=== PATIENT | female | born 1985 | race Caucasian/White ===

== ENCOUNTER → 2017-01-23 | Outpatient (CLI) | payer BC, OTHER ==
[~2017-01-23] MED LIST: PRENTAB26 PO
[2017-01-23 18:26] LABS: BLOOD UREA NITROGEN 10 mg/dl (7-18); BUN/CREATININE RATIO 11.5 (10-20); CALCIUM 9.1 mg/dl (8.5-10.1); CARBON DIOXIDE 28 mmol/L (21-32); CHLORIDE 107 mmol/L (98-107); CREATININE 0.86 mg/dl (0.60-1.20); GLUCOSE 70 mg/dl (70-99); POTASSIUM 3.7 mmol/L (3.5-5.1); SODIUM 140 mmol/L (136-145)
[2017-01-24 06:48] LABS: ESTIMATED AVERAGE GLUCOSE 120 mg/dl; HA1C FLAG Normal (Normal)
== END | disposition home or self-care (01) ==
LOC: C.LABPVFM 13:25
PROVIDERS: ATTEND Family Medicine
DX: E28.2 Polycystic ovarian syndrome (principal)

== ENCOUNTER → 2017-05-18 | Outpatient (CLI) | payer OTHER ==
[2017-05-18 12:56] LABS: CHOLESTEROL/HDL RATIO 4.5
[2017-05-18 13:03] LABS: ESTIMATED AVERAGE GLUCOSE 114 mg/dl; HA1C FLAG Normal (Normal)
== END | disposition home or self-care (01) ==
LOC: C.LABPVFM 08:03
PROVIDERS: ATTEND Nurse Practitioner
DX: E28.2 Polycystic ovarian syndrome (principal); E88.81 Metabolic syndrome and other insulin resistance

== ENCOUNTER 2018-11-28 06:57 | Inpatient (IN) ==
[~2018-11-28 06:57] MED LIST changes: +CEFAZOLIN 2000MG 2,000 MG/15 ML SYR IV SCH; -PRENTAB26 PO
[2018-11-28 07:32] LABS: Eosinophils # (auto) 0.07 K/uL (0-0.5); Hematocrit (blood only) 39.1 % (37-47); Hemoglobin 13.7 g/dL (12.0-16.0); Immature Granulocytes # (auto) 0.01 K/uL (0.00-0.02); Immature Granulocytes % (auto) 0.1 %; Lymphocytes # (auto) 1.96 K/uL (1.2-3.4); Lymphocytes % (auto) 27.1 %; Mean Corpuscular Volume 88.7 fL (80-100); Monocytes # (auto) 0.59 K/uL (0.11-0.59); Monocytes % (auto) 8.2 %; Neutrophils # (auto) 4.59 K/uL (1.4-6.5); Neutrophils % (auto) 63.6 %; Platelet Count 181 K/uL (130-400); RDW Coefficient of Variation 14.4 % (11.5-14.5); Red Blood Count 4.41 M/uL (4.2-5.4); White Blood Count 7.22 K/uL (4.8-10.8)
[2018-11-28] MEDS ORDERED: OXYTOCIN 30 UNITS/500 ML BAG IV PRN ×2 (08:38→08:46)
[2018-11-28] MEDS: LACTATED RINGER'S 1,000 ML IV PRN ×2 (09:02→15:10)
--- NOTE | 2018-11-28 11:53 | History & Physical Report ---
Date of Service November 28, 2018 Assessment & Plan (1) Encounter for planned induction of labor: will begin pitocin induction to bring head into the pelvis then AROM or cervical balloon to facilitate labor pattern anticipate vaginal . Present on Admission?: Yes History of Present Illness Primary Care Provider: Clarice Ramsey MD Patient is a 33 yo white female EDC12/05/18 who presents for IOL because of term . no contractions yet, no bloody show. complicated by prior delivery at 27 weeks gestation. She received [place] thiss pregn bea. Also GDM diet controlled. GBS (-) presentation at office visit yesterday was mauro breech. Today vertex by sonogram. Allergies Allergy/AdvReac Type Severity Reaction Status Date / Time No Known Allergies Allergy Verified 11/28/18 10:39 Home Medications Home Medications Medication Instructions Recorded Confirmed Type vit no.[id number] 1 tab PO DAILY 11/28/18 11/28/18 History [ Vitamin] Patient History Medical History Supervision of high risk in third trimester (Acute) Supervision of high risk in second trimester (Acute) Sensation of pressure in bladder area (Acute) -induced diabetes (Acute) Polycystic ovarian syndrome (Acute) Obesity complicating peripregnancy, antepartum (Acute) History of premature delivery, currently (Acute) Gross hematuria (Acute) Encounter for anatomic survey (Acute) Diet controlled gestational diabetes mellitus (GDM) in third trimester (Acute) Hx LEEP (loop electrosurgical excision procedure), cervix, [place] teeth extracted Social History Preferred Language: Slovak Beliefs That Will Affect Care: None marital status: Current Living Situation: Spouse and Family Other Information That Helps Us Care for You: No Feels Safe at Home: Yes Safety Concerns: Feels Safe At This Time Smoking Status: Former smoker Tobacco Type: cigarettes Do You Dip or Chew Tobacco: No Smoking End Date: two years ago Second Hand Exposure: No Hx Alcohol Use: No Hx Substance Use: No Review of Systems All systems reviewed & are unremarkable except as noted in HPI & below Physical Exam Constitutional: WD/WN, vitals as above Respiratory: normal respiratory effort, lungs clear to auscultation Cardiovascular: RRR, no murmur, no edema Gastrointestinal (Abdomen): normal bowel sounds, soft, nontender, no hepatosplenomegaly Genitourinary: OB Exam Abdomen: + vertex and + estimated weight (6-7 pounds) Manual OB Exam: + cervical dilation (closed), + cervical effacement 50% and + station high OB Exam Monitor Tracing: + external FHT monitor used, + external uterine monitor used and + normal FHT variability vertex by sonogram Results & Data Vital Signs (Past 12 Hours) Vital Signs Temp Pulse Resp BP 11/28/18 11:14 79 143/91 H 11/28/18 11:10 36.5 C 11/28/18 11:08 16 11/28/18 10:06 78 141/79 H 11/28/18 10:00 16 11/28/18 09:11 77 134/83 11/28/18 07:26 81 128/81 11/28/18 07:20 36.4 C L 81 18 128/81
[2018-11-28] MEDS ORDERED: fentaNYL citrate 100 MCG/2 ML VIAL ONE ×2 (15:04→16:34)
[2018-11-28] MEDS ORDERED: BUPIVACAINE 0.25% 30 ML VIAL ONE (15:04)
[2018-11-28] MEDS ORDERED: ePHEDrine sulfate 50 MG/ML AMP ONE (15:04)
[2018-11-28] MEDS ORDERED: fentaNYL 2MCG/ML ROPIV 1.25MG/ML 100 ML BAG EPI ONE (15:05)
--- NOTE | 2018-11-28 15:14 | Anesthesiology Consultation ---
Date of Service November 28, 2018 Assessment & Plan Chart Review Chart Review: Patient NOT seen in Pre Admission Testing and Acceptable Risk for Labor Epidural Consults Requested none ASA ASA2 Proposed Anesthesia Anesthesia Type: Labor Epidural and CSE Risk / Benefits Reviewed With: PT / POA / Parent / Guardian, Accepts Plan and Informed Consent Obtained History Surgery Operation Date: 11/28/18 09:00 Proposed Procedures p Section in LD - Shayy Lyles MD, FACOG Height/Weight Height: 5 ft 1 in Weight: 98.43 kg Allergies Allergy/AdvReac Type Severity Reaction Status Date / Time No Known Allergies Allergy Verified 11/28/18 10:39 Medications Home Medications Medication Instructions Recorded Confirmed Last Taken vit no.[id number] 1 tab PO DAILY 11/28/18 11/28/18 11/27/18 [ Vitamin] Active Medications Generic Name Dose Route Start Last Admin Trade Name Freq PRN Reason Stop Dose Admin Lactated Ringer's 1,000 mls @ 125 mls/hr 11/28/18 08:38 11/28/18 15:10 Lr IV 11/30/18 08:37 999 mls/hr .Q8H PRN Administration L&D Protocol Protocol Oxytocin 30 units in 500 mls @ 17 mls/hr 11/28/18 08:46 11/28/18 14:29 Pitocin IV 11/30/18 08:45 1.02 units/hr .Q24H PRN 17 mls/hr Labor Induction/Augmentation Titration Protocol 1.02 UNITS/HR NPO Date Last Intake of Fluids: 11/28/18 Time Last Intake of Fluids: 15:00 Date Last Intake of Solids: 11/27/18 Time Last Intake of Solids: 19:30 Past Medical History Medical History Supervision of high risk in third trimester (Acute) Supervision of high risk in second trimester (Acute) Sensation of pressure in bladder area (Acute) -induced diabetes (Acute) Polycystic ovarian syndrome (Acute) Obesity complicating peripregnancy, antepartum (Acute) History of premature delivery, currently (Acute) Gross hematuria (Acute) Encounter for anatomic survey (Acute) Diet controlled gestational diabetes mellitus (GDM) in third trimester (Acute) Hx LEEP (loop electrosurgical excision procedure), cervix, [place] teeth extracted Exercise / Class Metabolic Activity II 4-5 Yardwork/Stairs/Walk up hill Past Anesthesia History No Hx of Anesthesia Complications and No Family Hx of Anesthesia Complications History of PONV No Hx of PONV and No Hx of Motion Sickness Social History Smoking Status: Former smoker tobacco type: cigarettes Do You Dip or Chew Tobacco: No Smoking End Date: two years ago Hx Alcohol Use: No Hx Substance Use: No substance use type: does not use Review of Systems no chest pain or sob Physical Exam Vital Signs Last Vital Signs Temp 36.6 C 11/28/18 15:00 Pulse 76 11/28/18 15:09 Resp 22 11/28/18 15:00 BP 140/82 11/28/18 14:54 Pulse Ox 98 11/28/18 15:09 ENMT Mouth: no TMJ abnormality Thyromental Distance: > or= 3.5 Finger Breadths Mallampati Class: II Neck normal visual inspection Respiratory normal respiratory effort Auscultation: lungs clear to auscultation bilaterally Cardiovascular Rate/Rhythm: regular rate and regular rhythm Musculoskeletal Spine: normal cervical ROM Neurologic moves all extremities Psychiatric Orientation: alert and oriented x 3 Testing Laboratory Results 11/28/18 07:25 Blood Type O Positive 11/28/18 07:22 Antibody Screen NEGATIVE 11/28/18 07:22
[2018-11-28] MEDS ORDERED: ONDANSETRON INJ 2 MG/ML 2 ML VIAL IV PRN ×3 (15:26→17:38)
[2018-11-28] MEDS ORDERED: NALBUPHINE HCL INJ 10 MG/ML AMP IV PRN ×2 (15:26→17:11)
[2018-11-28] MEDS ORDERED: DiphenhydrAMINE HCL 50 MG/ML VIAL IV PRN ×3 (15:26→17:38)
[2018-11-28] MEDS ORDERED: fentaNYL 2MCG/ML ROPIV 1.25MG/ML 100 ML BAG EPI PRN (15:26)
[2018-11-28] MEDS ORDERED: NALOXONE HCL 0.4 MG/1 ML VIAL/CARP IV PRN ×2 (15:26→17:11)
[2018-11-28] MEDS ORDERED: NALOXONE HCL 1 MG in SODIUM CHLORIDE 0.9% 1000ML 1,000 ML IV PRN ×2 (15:26→17:11)
[2018-11-28] MEDS ORDERED: ePHEDrine sulfate 50 MG/ML AMP IV PRN ×2 (15:26→17:11)
[2018-11-28] MEDS ORDERED: CITRIC ACID/SODIUM CITRATE 15 ML UDC PO SCH (16:00)
[2018-11-28] MEDS ORDERED: LACTATED RINGER'S 1,000 ML IV SCH ×3 (16:30→17:45)
[2018-11-28] MEDS ORDERED: LIDOCAINE/EPINEPHRINE 2% 1:200,000 20 ML SDV ONE ×2 (16:35→17:00)
[2018-11-28] MEDS ORDERED: CITRIC ACID/SODIUM CITRATE 15 ML UDC ONE (16:39)
[2018-11-28] MEDS ORDERED: CEFAZOLIN 250 MG/ML 1 GM VIAL ONE (16:52)
[2018-11-28] MEDS ORDERED: OXYTOCIN 10 UNITS/ML VIAL ONE (16:52)
[2018-11-28] MEDS ORDERED: MoRPHine SULFATE PF 1 MG/ML 10 ML AMP/VIAL ONE (16:53)
[2018-11-28] MEDS ORDERED: LACTATED RINGER'S 500 ML IV PRN (17:11)
[2018-11-28] MEDS ORDERED: KETOROLAC 30 MG/ML VIAL IV PRN (17:11)
[2018-11-28] MEDS ORDERED: HYDROmorphone INJ 0.5 MG/0.5 ML SYR IV PRN (17:11)
[2018-11-28] MEDS ORDERED: NALOXONE HCL 0.08 MG in SYRINGE 1.8 ML IV PRN (17:11)
[2018-11-28] MEDS ORDERED: MoRPHine SULFATE PF 1 MG/ML 10 ML AMP/VIAL INT SPINAL ONE (17:11)
[2018-11-28] MEDS ORDERED: SODIUM CHLORIDE 0.9% 1000ML 1,000 ML IV SCH (17:15)
[2018-11-28] MEDS ORDERED: PHENYLEPHRINE 100MCG/ML 5ML SYR ONE (17:15)
[2018-11-28] MEDS ORDERED: ONDANSETRON INJ 2 MG/ML 2 ML VIAL ONE (17:15)
[2018-11-28] MEDS ORDERED: NO NARCOTICS OR SEDATIVES SCH (17:15)
[2018-11-28] MEDS ORDERED: SENNA 8.6 MG TAB PO PRN (17:38)
[2018-11-28] MEDS ORDERED: DIPHTHERIA/TETANUS/PERTUSSIS 0.5 ML SYR/VIAL IM ONE (17:38)
[2018-11-28] MEDS ORDERED: SUPERCREAM 0.870% 15 GM JAR EXT PRN (17:38)
[2018-11-28] MEDS ORDERED: PROMETHAZINE HCL 25 MG in SODIUM CHLORIDE 0.9% 50 ML IV PRN (17:38)
[2018-11-28] MEDS ORDERED: HYDROCORTISONE ACETATE 25 MG SUPP PR PRN (17:38)
[2018-11-28] MEDS ORDERED: MAGNESIUM HYDROXIDE SUSP 30 ML UDC PO PRN (17:38)
[2018-11-28] MEDS ORDERED: BENZOCAINE 20% AER SPR 82.5 GM CAN EXT PRN (17:38)
--- NOTE | 2018-11-28 17:45 | Post Operative Brief Note ---
Immediate Post Op Note v1 Date of Surgery November 28, 2018 Pre & Post Diagnosis Operation Date: 11/28/18 09:00 <No data on this case meets the specified criteria> Operation Date: 11/28/18 16:30 Pre-Op Diagnosis: Intrauterine compound presentation-hand presentation Post-Op Diagnosis: primary low transverse section for viable male at 1707 Procedure Operation Date: 11/28/18 09:00 <No data on this case meets the specified criteria> Operation Date: 11/28/18 16:30 Actual Procedures p Section in LD - Shayy Lyles MD, FACOG Surgeon Shayy Lyles MD, FACOG Program Counselor Justin Su MD Estimated Blood Loss 500 Findings Consistent with Post-Op Diagnosis Drains Maldonado Catheter (inserted in labor and delivery)
--- NOTE | 2018-11-28 18:17 | Anesthesiology Progress Note ---
Date of Service November 28, 2018 Anesthesia Post Procedure Vital Signs Vital Signs: Temp Pulse Resp BP Pulse Ox 11/28/18 18:11 72 97 11/28/18 18:10 75 102/58 L 87 L 11/28/18 18:06 75 97 11/28/18 18:01 74 96 11/28/18 17:56 72 115/56 L 96 11/28/18 17:53 76 91 11/28/18 17:52 75 117/56 L 11/28/18 17:51 74 95 11/28/18 16:34 87 98 11/28/18 16:30 22 11/28/18 16:29 83 139/82 98 11/28/18 16:24 78 97 11/28/18 16:19 76 97 11/28/18 16:14 82 98 11/28/18 16:13 81 126/68 11/28/18 16:09 81 96 11/28/18 16:04 80 98 11/28/18 16:00 20 11/28/18 15:59 80 96 11/28/18 15:57 83 143/79 H 11/28/18 15:54 88 96 11/28/18 15:49 86 97 11/28/18 15:44 81 97 11/28/18 15:41 82 147/88 H 11/28/18 15:39 81 145/85 H 97 11/28/18 15:37 76 145/88 H 11/28/18 15:35 82 142/82 H 11/28/18 15:34 81 98 11/28/18 15:33 80 145/82 H 11/28/18 15:31 77 145/80 H 11/28/18 15:30 20 11/28/18 15:29 82 137/78 97 11/28/18 15:27 75 150/85 H 11/28/18 15:25 78 153/86 H 11/28/18 15:24 81 98 11/28/18 15:23 83 139/80 11/28/18 15:19 79 99 11/28/18 15:17 80 143/83 H 11/28/18 15:14 76 99 11/28/18 15:09 76 98 11/28/18 15:00 36.6 C 20 11/28/18 14:54 72 140/82 11/28/18 14:20 69 140/81 06/27/19 14:00 16 11/28/18 12:32 81 139/80 11/28/18 11:14 79 143/91 H 11/28/18 11:10 36.5 C 11/28/18 11:08 16 11/28/18 10:06 78 141/79 H 11/28/18 10:00 16 11/28/18 09:11 77 134/83 11/28/18 07:26 81 128/81 11/28/18 07:20 36.4 C L 81 18 128/81 Pain Intensity Lower Abdomen: Pain Intensity: 2 Transfer of Care Handoff Completed per policy Notes Mental Status: alert / awake / arousable Patient Amnestic to Procedure: Yes Nausea / Vomiting: adequately controlled Pain: adequately controlled Airway Patency, RR, SpO2: stable & adequate BP & HR: stable & adequate Hydration State: stable & adequate Neuraxial Anesthesia: was administered and sensory block is resolving Anesthetic Complications: no major complications apparent and Pt Satisfied with anesthetic care
[2018-11-28] MEDS: OXYTOCIN 20 UNITS in LACTATED RINGER'S 1,000 ML IV PRN (21:28)
[2018-11-28] MEDS: DOCUSATE SODIUM 100 MG CAP PO SCH (21:34)
[2018-11-28] MEDS: SIMETHICONE 80 MG CHEW PO SCH (21:34)
--- NOTE | 2018-11-29 01:15 | Operative Report ---
DATE OF OPERATION: 11/28/2018 SURGEON: Shayy Blas MD DAMAGE APPRAISER: Justin Su MD PREOPERATIVE DIAGNOSIS: Intrauterine at 39 weeks, induction of labor, and compound presentation with hand presenting. POSTOPERATIVE DIAGNOSIS: Intrauterine at 39 weeks, induction of labor, and compound presentation with hand presenting plus delivery of a viable male infant, 8 pounds 8 ounces. PROCEDURE: Primary low transverse section. ANESTHESIA: Epidural. BLOOD LOSS: 500 mL. HISTORY: The patient is a 33-year-old white female G2, P0-1-0-1, EDC of 12/05/2018, who presented for induction of labor. She had had no contractions yet and in the office yesterday it was breech presentation. On admission to labor and delivery on the morning of 11/28/2018, the infant was in a vertex presentation, but floating. Pitocin was begun. She progressed to 4 cm and 100% dilated; however, the presenting part was still high, but still continued to be vertex. She received epidural analgesia. She then ruptured membranes spontaneously for a large amount of clear fluid. The exam following the rupture revealed what appeared to be an ear presentation. Following this, the patient was examined one half an hour later and there was a presenting hand, which felt like the right hand. Because of the now hand presentation, we proceeded to a low transverse section. The patient and her were agreeable to this plan and her questions were answered to their satisfaction. GROSS FINDINGS: Uterus was gravid and consistent with a term in size. The ovaries were grossly normal. There was a small sessile fibroid on the right fundus. The infant was in the vertex right transverse position with the right hand presenting to the level of the wrist. DESCRIPTION OF PROCEDURE: After the patient received adequate epidural analgesia, she was prepped and draped in the usual sterile fashion. A low transverse skin incision was made with a scalpel and carried to the fascia with the same scalpel. The fascial incision was then extended with Bautista scissors. The edges were grasped with Gisel clamps and the underlying rectus muscles were bluntly and sharply dissected off the overlying fascia. The rectus muscles were bluntly divided along the midline and the underlying peritoneum elevated and entered sharply. The bladder was then taken down off the anterior surface of the uterus and placed behind the bladder blade. The lower uterine segment was quite thin and this was entered with a scalpel and extended transversely. The infant was delivered from the vertex and bringing the right elbow and hand up with the vertex to deliver both at the same time. The rest of the delivered easily. There was spontaneous cry and the infant was moving all 4 limbs. The cord was clamped and cut after suctioning the pharynx and handed off to Dr. Rodriguez, who was in attendance as the administrator social welfare. The placenta was then expressed intact with a 3-vessel cord. The uterus was exteriorized and covered with a clean lap sponge. The uterine cavity was then explored and found to be free of any placental tissue or membranes. The uterus was then closed in 2 layers in a running locking imbricating fashion. Bleeding site on the left side of the incision was controlled with an additional stitch of 0 Monocryl. Hemostasis at this point was excellent. The posterior cul-de-sac was irrigated with normal saline. The uterus was gently placed back inside the abdominal cavity. The uterine incision continued to have excellent hemostasis. The gutters were explored. A few clots were taken from the right gutter and the anterior cul-de-sac was also irrigated with normal saline. The rectus muscles were then brought together on the midline with individual stitches of 0 Monocryl. Fascia was closed in a running fashion with 0 Vicryl. The Carey's fascia was closed with 2-0 plain catgut in a running fashion after irrigating the adipose layer. Skin edges were reapproximated using a subcuticular stitch of 4-0 Vicryl. Urine was clear at the end of the case. Mother and were doing well after the procedure. I attest to the content of the Intraoperative Record and any orders documented therein. Any exceptions are noted below. GUID
[2018-11-29] MEDS: OXYTOCIN 20 UNITS in LACTATED RINGER'S 1,000 ML IV PRN (04:45)
[2018-11-29 07:16] LABS: Eosinophils # (auto) 0.02 K/uL (0-0.5); Eosinophils % (auto) 0.2 %; Hematocrit (blood only) 34.8 % (37-47); Immature Granulocytes # (auto) 0.01 K/uL (0.00-0.02); Immature Granulocytes % (auto) 0.1 %; Lymphocytes # (auto) 1.63 K/uL (1.2-3.4); Mean Corpuscular Hgb Conc 34.5 g/dL (32-36); Mean Corpuscular Volume 88.8 fL (80-100); Monocytes # (auto) 0.91 K/uL (0.11-0.59); Monocytes % (auto) 8.9 %; Neutrophils % (auto) 74.8 %; Platelet Count 157 K/uL (130-400); RDW Coefficient of Variation 14.2 % (11.5-14.5); RDW Standard Deviation 46.2 fL (36.4-46.3); Red Blood Count 3.92 M/uL (4.2-5.4); White Blood Count 10.17 K/uL (4.8-10.8)
--- NOTE | 2018-11-29 07:17 | Obstetrical Progress Note ---
Date of Service <Rivera Gilliam, - Last Filed: 11/29/18 07:17> November 29, 2018 Assessment & Plan <Rivera Gilliam DO - Last Filed: 11/29/18 07:17> (1) Status post section routine follow-up: -vital signs reviewed and WNL -last Hgb 13.7 -Blood type: O+, GBS-, Rubella Immune -pt doing well clinically -encourage ambulation, monitor and control pain with motrin tylenol, advance to regular diet, monitor lochia -remove cook -cont encourage bottle feeding Subjective <Rivera Gilliam DO - Last Filed: 11/29/18 07:17> 33 y/o POD1 found in bed this morning in NAD. Reports no acute overnight events. Pt states that she has no pain other than appropriate soreness. Tolerating PO intake of liquids without N/V. Has not attempted to ambulate. She is bottle feeding without issue. No issues with voiding, no BM yet but passing gas, cook in place. No other acute concerns or complaints. Review of Systems All systems reviewed & are unremarkable except as noted in HPI & below Physical Exam <Rivera Gilliam, - Last Filed: 11/29/18 07:17> Constitutional WD/WN, vitals as above Respiratory normal respiratory effort, lungs clear to auscultation Cardiovascular RRR, no murmur, no edema Gastrointestinal (Abdomen) mild abd tenderness Incision C/D/I, no bandage Skin no rashes, warm and dry Psychiatric A+Ox3, euthymic affect Lymphatic no LE swelling, no calf tenderness Results & Data <Rivera Gilliam, - Last Filed: 11/29/18 07:17> Vital Signs (Past 12 Hours) Vital Signs Temp Pulse Pulse Resp BP BP Pulse Ox 11/29/18 06:15 20 99 11/29/18 05:14 18 100 11/29/18 04:00 36.8 C 83 18 136/84 99 11/29/18 03:00 18 99 11/29/18 02:00 18 98 11/29/18 01:00 18 99 11/29/18 00:00 36.7 C 80 18 134/79 99 11/28/18 22:45 18 97 11/28/18 21:45 16 92 11/28/18 20:45 36.6 C 85 16 140/75 92 11/28/18 20:31 85 140/75 11/28/18 20:26 90 96 11/28/18 20:21 84 95 11/28/18 20:16 79 97 11/28/18 20:11 84 97 11/28/18 20:06 80 97 11/28/18 20:01 85 135/78 98 11/28/18 20:00 36.5 C 20 11/28/18 19:56 73 95 11/28/18 19:51 87 97 11/28/18 19:46 74 97 11/28/18 19:41 82 97 11/28/18 19:36 76 98 11/28/18 19:32 69 122/73 11/28/18 19:31 70 99 11/28/18 19:26 73 97 11/28/18 19:21 74 99 11/28/18 19:16 75 98 Laboratory Results Laboratory Results - last 24 hr 11/28/18 11/28/18 11/29/18 07:22 07:25 06:31 WBC 7.22 Pending RBC 4.41 Pending Hgb 13.7 Pending Hct 39.1 Pending MCV 88.7 Pending MCH 31.1 Pending MCHC 35.0 Pending RDW Std Deviation 47.0 H RDW Coeff of Annette 14.4 Plt Count 181 Pending MPV 10.0 Immature Gran % (Auto) 0.1 Neut % (Auto) 63.6 Lymph % (Auto) 27.1 [place] % (Auto) 8.2 Eos % (Auto) 1.0 Baso % (Auto) 0.0 Immature Gran # (Auto) 0.01 Neut # (Auto) 4.59 Lymph # (Auto) 1.96 [place] # (Auto) 0.59 Eos # (Auto) 0.07 Baso # (Auto) 0.00 Blood Type O Positive Antibody Screen NEGATIVE Medications Administered Current Inpatient Medications Benzocaine (Dermoplast Pain Relieving [place]) 1 appln EXT UD PRN PRN Reason: use on skin as needed Stop: 12/28/18 17:37 Bisacodyl (Dulcolax) 5 mg PO 1999 [facility] Stop: 11/29/18 20:01 Bisacodyl (Dulcolax) 10 mg [place] PRN PRN PRN Reason: Constipation Stop: 12/30/18 17:37 Cocaine HCl (Supercream 0.870%) 1 gm EXT UD PRN PRN Reason: hemmorrhoidal inflammation Stop: 12/12/18 17:37 Diphenhydramine HCl (Benadryl) 25 mg IV Q6H PRN PRN Reason: Itching Stop: 11/29/18 15:25 Diphenhydramine HCl (Benadryl) 25 mg IV Q6H PRN PRN Reason: pruritis Stop: 11/29/18 11:11 Diphenhydramine HCl (Benadryl Capsule) 25 mg PO QID PRN PRN Reason: Itching Stop: 12/29/18 11:11 Diphenhydramine HCl (Benadryl) 25 mg IV QID PRN PRN Reason: Itching Stop: 12/29/18 11:11 Docusate Sodium (Colace) 100 mg PO DAILY@08, [facility] Stop: 12/28/18 20:59 Last Admin: 11/28/18 21:34 Dose: 100 mg Documented by: Ephedrine Sulfate (Ephedrine Sulfate) 10 mg IV Q5M PRN PRN Reason: Hypotension Stop: 11/29/18 15:25 Ephedrine Sulfate (Ephedrine Sulfate) 10 mg IV Q5M PRN PRN Reason: Hypotension Stop: 11/29/18 11:11 Ferrous Sulfate (Feosol) 325 mg PO DAILY@08 [facility] Stop: 12/29/18 07:59 Hydrocortisone (Anusol Hc) 25 mg [place] BID PRN PRN Reason: Hemorrhoids Stop: 12/28/18 17:37 Hydromorphone HCl (Dilaudid) 0.25 mg IV Q4H PRN PRN Reason: Breakthrough Surgical Pain Stop: 11/29/18 11:12 Oxytocin (Pitocin) 30 units in 500 mls @ 333.333 mls/hr IV .Q1H30M PRN; Protocol PRN Reason: Bleeding Control Stop: 12/28/18 08:37 Oxytocin (Pitocin) 30 units in 500 mls @ 17 mls/hr IV .Q24H PRN; Protocol PRN Reason: Labor Induction/Augmentation Stop: 11/30/18 08:45 Last Titration: 11/28/18 16:26 Dose: Infused Documented by: Naloxone HCl 1 mg/ Sodium (Chloride) 1,002.5 mls @ 50 mls/hr IV .Q20H3M PRN PRN Reason: itching or nausea Stop: 11/29/18 15:25 Lactated Ringer's (Lr) 1,000 mls @ 125 mls/hr IV .Q8H [place] Stop: 12/28/18 17:29 Lactated Ringer's (Lr) 500 mls @ 999 mls/hr IV .Q31M PRN PRN Reason: Hypotension Stop: 11/29/18 11:11 Naloxone HCl 1 mg/ Sodium (Chloride) 1,002.5 mls @ 50 mls/hr IV .Q20H3M PRN PRN Reason: itching or nausea Stop: 11/29/18 11:11 Sodium Chloride (Nss 1000ml) 1,000 mls @ 15 mls/hr IV .Q24H [place] Stop: 11/29/18 11:11 Naloxone HCl 0.08 mg/ Syringe 2 mls @ 1 mls/min IV Q30M PRN; Protocol PRN Reason: Urinary Retention Stop: 11/29/18 11:11 Lactated Ringer's (Lr) 1,000 mls @ 125 mls/hr IV .Q8H [place] Stop: 12/28/18 17:44 Promethazine HCl 25 mg/ Sodium (Chloride) 51 mls @ 204 mls/hr IV Q4H PRN PRN Reason: Nausea And Vomiting Stop: 12/28/18 17:37 Oxytocin 20 units/ Lactated (Ringer's) 1,002 mls @ 125 mls/hr IV .Q8H1M PRN; Protocol PRN Reason: L&D protocol Last Admin: 11/29/18 04:45 Dose: 125 mls/hr Documented by: Ibuprofen (Motrin) 600 mg PO Q4H PRN PRN Reason: Pain Stop: 12/28/18 17:37 Ketorolac Tromethamine (Toradol) 30 mg IV Q6H PRN PRN Reason: Breakthrough Surgical Pain Stop: 11/29/18 11:11 Last Admin: 11/28/18 21:15 Dose: 30 mg Documented by: Ketorolac Tromethamine (Toradol) 30 mg IV Q6H PRN PRN Reason: Pain Stop: 12/04/18 11:11 Magnesium Hydroxide (Milk Of Magnesia) 30 ml PO HS PRN PRN Reason: Constipation Stop: 12/28/18 17:37 Miscellaneous (No Narcotics Or Sedatives) 1 ea N/A UD [place] Stop: 11/29/18 11:11 Miscellaneous Information (Dc Intraspinal Morphine) 1 ea N/A UD [place] Stop: 11/29/18 11:12 Nalbuphine HCl (Nubain) 5 mg IV Q10M PRN PRN Reason: itching or nausea Stop: 11/29/18 15:25 Nalbuphine HCl (Nubain) 5 mg IV Q10M PRN PRN Reason: itching or nausea Stop: 11/29/18 11:11 Naloxone HCl (Narcan) 0.1 mg IV UD PRN PRN Reason: respiratory depression Stop: 11/29/18 15:25 Naloxone HCl (Narcan) 0.1 mg IV UD PRN PRN Reason: Respiratory Depression Stop: 11/29/18 11:11 Ondansetron HCl (Zofran) 4 mg IV Q6H PRN PRN Reason: Nausea And Vomiting Stop: 11/29/18 15:25 Ondansetron HCl (Zofran) 4 mg IV Q6H PRN PRN Reason: Nausea And Vomiting Stop: 11/29/18 11:12 Ondansetron HCl (Zofran) 4 mg IV Q4H PRN PRN Reason: Nausea And Vomiting Stop: 12/28/18 17:37 Oxycodone/Acetaminophen (Percocet 5mg/325mg) 1 - 2 tab PO Q4H PRN PRN Reason: Pain Stop: 12/13/18 11:11 Prenat Multivit/Housekeeping/Laundry Supervisor/Iron/Folic Ac ( Vitamin) 1 tab PO DAILY@08 [facility] Stop: 12/29/18 07:59 Ropivacaine (Epidural (L&D)) 100 ml EPI PRN PRN; Protocol PRN Reason: Pain R/T Labor Stop: 11/29/18 15:25 Sennosides (Senokot) 17.2 mg PO HS PRN PRN Reason: Constipation Stop: 12/28/18 17:37 Simethicone (Mylicon) 80 mg PO DAILY@08,13,17,21 [facility] Stop: 12/28/18 20:59 Last Admin: 11/28/18 21:34 Dose: 80 mg Documented by: <Shayy Lyles MD, FACOG - Last Filed: 11/29/18 07:50> Co-Signing Physician Notes Resident Physician Supervision Note: I interviewed and examined the patient. Discussed with Dr. Lasha Gilliam and agree with findings and plan as documented in the note. Any exceptions or clarificat ions are listed here: [None] Documented By: Shayy Lyles MD, FACOG Resident Activity Tracking <Rivera Gilliam DO - Last Filed: 11/29/18 07:17> Resident Involvement: Resident Care Provided Care Provided: OB Delivery
--- NOTE | 2018-11-29 07:51 | Anesthesiology Progress Note ---
Date of Service November 29, 2018 Anesthesia Post Procedure Vital Signs Vital Signs: Temp Pulse Pulse Resp BP BP Pulse Ox 11/29/18 06:15 20 99 11/29/18 05:14 18 100 11/29/18 04:00 36.8 C 83 18 136/84 99 11/29/18 03:00 18 99 11/29/18 02:00 18 98 11/29/18 01:00 18 99 11/29/18 00:00 36.7 C 80 18 134/79 99 11/28/18 22:45 18 97 11/28/18 21:45 16 92 11/28/18 20:45 36.6 C 85 16 140/75 92 11/28/18 20:31 85 140/75 11/28/18 20:26 90 96 11/28/18 20:21 84 95 11/28/18 20:16 79 97 11/28/18 20:11 84 97 11/28/18 20:06 80 97 11/28/18 20:01 85 135/78 98 11/28/18 20:00 36.5 C 20 11/28/18 19:56 73 95 11/28/18 19:51 87 97 11/28/18 19:46 74 97 11/28/18 19:41 82 97 11/28/18 19:36 76 98 11/28/18 19:32 69 122/73 11/28/18 19:31 70 99 11/28/18 19:26 73 97 11/28/18 19:21 74 99 11/28/18 19:16 75 98 11/28/18 19:11 74 98 11/28/18 19:06 75 98 11/28/18 19:01 75 98 11/28/18 19:00 36.5 C 20 11/28/18 18:59 80 96/54 L 11/28/18 18:56 78 99 11/28/18 18:53 75 104/56 L 11/28/18 18:51 78 99 11/28/18 18:50 20 11/28/18 18:46 78 99 11/28/18 18:42 78 90/50 L 11/28/18 18:41 78 99 11/28/18 18:40 20 11/28/18 18:36 80 99 11/28/18 18:31 80 98 11/28/18 18:30 20 11/28/18 18:26 78 99 11/28/18 18:21 75 99/63 L 98 11/28/18 18:20 18 11/28/18 18:19 81 85 L 11/28/18 18:16 75 99 11/28/18 18:11 72 97 11/28/18 18:10 75 18 102/58 L 87 L 11/28/18 18:06 75 97 11/28/18 18:01 74 96 11/28/18 18:00 36.5 C 16 11/28/18 17:56 72 115/56 L 96 11/28/18 17:53 76 91 11/28/18 17:52 75 117/56 L 11/28/18 17:51 74 95 11/28/18 16:34 87 98 11/28/18 16:30 22 11/28/18 16:29 83 139/82 98 11/28/18 16:24 78 97 11/28/18 16:19 76 97 11/28/18 16:14 82 98 11/28/18 16:13 81 126/68 11/28/18 16:09 81 96 11/28/18 16:04 80 98 11/28/18 16:00 20 11/28/18 15:59 80 96 11/28/18 15:57 83 143/79 H 11/28/18 15:54 88 96 11/28/18 15:49 86 97 11/28/18 15:44 81 97 11/28/18 15:41 82 147/88 H 11/28/18 15:39 81 145/85 H 97 11/28/18 15:37 76 145/88 H 11/28/18 15:35 82 142/82 H 11/28/18 15:34 81 98 11/28/18 15:33 80 145/82 H 11/28/18 15:31 77 145/80 H 11/28/18 15:30 20 11/28/18 15:29 82 137/78 97 11/28/18 15:27 75 150/85 H 11/28/18 15:25 78 153/86 H 11/28/18 15:24 81 98 11/28/18 15:23 83 139/80 11/28/18 15:19 79 99 11/28/18 15:17 80 143/83 H 11/28/18 15:14 76 99 11/28/18 15:09 76 98 11/28/18 15:00 36.6 C 20 11/28/18 14:54 72 140/82 11/28/18 14:20 69 140/81 11/28/18 14:00 16 11/28/18 12:32 81 139/80 11/28/18 11:14 79 143/91 H 11/28/18 11:10 36.5 C 11/28/18 11:08 16 11/28/18 10:06 78 141/79 H 11/28/18 10:00 16 11/28/18 09:11 77 134/83 Pain Intensity Lower Abdomen: Pain Intensity: 2 Transfer of Care Handoff Completed per policy Notes Mental Status: alert / awake / arousable and participated in evaluation Nausea / Vomiting: adequately controlled Pain: adequately controlled Airway Patency, RR, SpO2: stable & adequate BP & HR: stable & adequate Hydration State: stable & adequate Neuraxial Anesthesia: was administered and sensory block resolved Anesthetic Complications: no major complications apparent and Pt Satisfied with anesthetic care Notes: Patient denies headache this morning. Denies feelings of weakness or residual numbness. Patient encouraged to contact anesthesia for any concerns or new headache
[2018-11-29] MEDS: SIMETHICONE 80 MG CHEW PO SCH ×4 (08:07→21:14)
[2018-11-29] MEDS: FERROUS SULFATE 325 MG TAB PO SCH (08:07)
[2018-11-29] MEDS: DOCUSATE SODIUM 100 MG CAP PO SCH ×2 (08:07→19:17)
[2018-11-29] MEDS: PRENATAL VITAMIN 1 TAB PO SCH (08:07)
--- NOTE | 2018-11-29 10:52 | Anesthesiology Progress Note ---
Date of Service November 29, 2018 Anesthesia Post Procedure Vital Signs Vital Signs: Temp Pulse Pulse Resp BP BP Pulse Ox 11/29/18 10:00 16 97 11/29/18 09:00 16 97 11/29/18 08:00 18 96 11/29/18 07:00 16 97 11/29/18 06:15 20 99 11/29/18 05:14 18 100 11/29/18 04:00 36.8 C 83 18 136/84 99 11/29/18 03:00 18 99 11/29/18 02:00 18 98 11/29/18 01:00 18 99 11/29/18 00:00 36.7 C 80 18 134/79 99 11/28/18 22:45 18 97 11/28/18 21:45 16 92 11/28/18 20:45 36.6 C 85 16 140/75 92 11/28/18 20:31 85 140/75 11/28/18 20:26 90 96 11/28/18 20:21 84 95 11/28/18 20:16 79 97 11/28/18 20:11 84 97 11/28/18 20:06 80 97 11/28/18 20:01 85 135/78 98 11/28/18 20:00 36.5 C 20 11/28/18 19:56 73 95 11/28/18 19:51 87 97 11/28/18 19:46 74 97 11/28/18 19:41 82 97 11/28/18 19:36 76 98 11/28/18 19:32 69 122/73 11/28/18 19:31 70 99 11/28/18 19:26 73 97 11/28/18 19:21 74 99 11/28/18 19:16 75 98 11/28/18 19:11 74 98 11/28/18 19:06 75 98 11/28/18 19:01 75 98 11/28/18 19:00 36.5 C 20 11/28/18 18:59 80 96/54 L 11/28/18 18:56 78 99 11/28/18 18:53 75 104/56 L 11/28/18 18:51 78 99 11/28/18 18:50 20 11/28/18 18:46 78 99 11/28/18 18:42 78 90/50 L 11/28/18 18:41 78 99 06/27/19 18:40 20 11/28/18 18:36 80 99 11/28/18 18:31 80 98 11/28/18 18:30 20 11/28/18 18:26 78 99 11/28/18 18:21 75 99/63 L 98 11/28/18 18:20 18 11/28/18 18:19 81 85 L 11/28/18 18:16 75 99 11/28/18 18:11 72 97 11/28/18 18:10 75 18 102/58 L 87 L 11/28/18 18:06 75 97 11/28/18 18:01 74 96 11/28/18 18:00 36.5 C 16 11/28/18 17:56 72 115/56 L 96 11/28/18 17:53 76 91 11/28/18 17:52 75 117/56 L 11/28/18 17:51 74 95 11/28/18 16:34 87 98 11/28/18 16:30 22 11/28/18 16:29 83 139/82 98 11/28/18 16:24 78 97 11/28/18 16:19 76 97 11/28/18 16:14 82 98 11/28/18 16:13 81 126/68 11/28/18 16:09 81 96 11/28/18 16:04 80 98 11/28/18 16:00 20 11/28/18 15:59 80 96 11/28/18 15:57 83 143/79 H 11/28/18 15:54 88 96 11/28/18 15:49 86 97 11/28/18 15:44 81 97 11/28/18 15:41 82 147/88 H 11/28/18 15:39 81 145/85 H 97 11/28/18 15:37 76 145/88 H 11/28/18 15:35 82 142/82 H 11/28/18 15:34 81 98 11/28/18 15:33 80 145/82 H 11/28/18 15:31 77 145/80 H 11/28/18 15:30 20 11/28/18 15:29 82 137/78 97 11/28/18 15:27 75 150/85 H 11/28/18 15:25 78 153/86 H 11/28/18 15:24 81 98 11/28/18 15:23 83 139/80 11/28/18 15:19 79 99 11/28/18 15:17 80 143/83 H 11/28/18 15:14 76 99 11/28/18 15:09 76 98 11/28/18 15:00 36.6 C 20 11/28/18 14:54 72 140/82 11/28/18 14:20 69 140/81 11/28/18 14:00 16 11/28/18 12:32 81 139/80 11/28/18 11:14 79 143/91 H 11/28/18 11:10 36.5 C 11/28/18 11:08 16 Pain Intensity Lower Abdomen: Pain Intensity: 2 Notes Mental Status: alert / awake / arousable and participated in evaluation Patient Amnestic to Procedure: Yes Nausea / Vomiting: adequately controlled Pain: adequately controlled Airway Patency, RR, SpO2: stable & adequate BP & HR: stable & adequate Hydration State: stable & adequate Anesthetic Complications: no major complications apparent and Pt Satisfied with anesthetic care
[2018-11-29] MEDS ORDERED: DC INTRASPINAL MORPHINE SCH (11:11)
[2018-11-29] MEDS ORDERED: KETOROLAC 30 MG/ML VIAL IV PRN (11:12)
[2018-11-29] MEDS ORDERED: DiphenhydrAMINE HCL 50 MG/ML VIAL IV PRN (11:12)
[2018-11-29] MEDS ORDERED: OXYCODONE/ACETAMINOPHEN 5mg/325mg TAB PO PRN (11:12)
[2018-11-29] MEDS: IBUPROFEN 600 MG TAB PO PRN ×2 (12:08→21:15)
[2018-11-29] MEDS ORDERED: BISACODYL 5 MG TABEC PO SCH (20:00)
--- NOTE | 2018-11-30 07:43 | Obstetrical Progress Note ---
Date of Service <Rivera DimitriLucita Gilliam, DO - Last Filed: 11/30/18 07:43> November 30, 2018 Assessment & Plan <Rivera Gilliam - Last Filed: 11/30/18 07:43> (1) Status post section routine follow-up: -vital signs reviewed and WNL -last Hgb 13.7 -Blood type: O+, GBS-, Rubella Immune -pt doing well clinically -encourage ambulation, monitor and control pain with motrin tylenol, advance to regular diet, monitor lochia -cont encourage bottle feeding -anticipate d/c tomorrow Subjective <Rivera DimitriLucita Gilliam DO - Last Filed: 11/30/18 07:43> 33 y/o POD2 found in bed this morning in NAD. Reports no acute overnight events. Pt states that she has no pain other than appropriate soreness. Tolerating PO intake without N/V. Able to ambulate without issue. She is bottle feeding without issue. No issues with voiding, no BM yet but passing gas, cook removed. No other acute concerns or complaints. Review of Systems All systems reviewed & are unremarkable except as noted in HPI & below Physical Exam <Rivera Gilliam, - Last Filed: 11/30/18 07:43> Constitutional WD/WN, vitals as above Respiratory normal respiratory effort, lungs clear to auscultation Cardiovascular RRR, no murmur, no edema Gastrointestinal (Abdomen) mild abd tenderness Incision C/D/I Skin no rashes, warm and dry Psychiatric A+Ox3, euthymic affect Lymphatic no LE swelling, no calf tenderness Results & Data <Rivera Gilliam, DO - Last Filed: 11/30/18 07:43> Vital Signs (Past 12 Hours) Vital Signs Temp Pulse Resp BP Pulse Ox 11/29/18 23:20 36.9 C 90 16 115/70 97 Medications Administered Current Inpatient Medications Benzocaine (Dermoplast Pain Relieving [place]) 1 appln EXT UD PRN PRN Reason: use on skin as needed Stop: 12/28/18 17:37 Bisacodyl (Dulcolax) 10 mg NH PRN PRN PRN Reason: Constipation Stop: 12/30/18 17:37 Cocaine HCl (Supercream 0.870%) 1 gm EXT UD PRN PRN Reason: hemmorrhoidal inflammation Stop: 12/12/18 17:37 Diphenhydramine HCl (Benadryl Capsule) 25 mg PO QID PRN PRN Reason: Itching Stop: 12/29/18 11:11 Diphenhydramine HCl (Benadryl) 25 mg IV QID PRN PRN Reason: Itching Stop: 12/29/18 11:11 Docusate Sodium (Colace) 100 mg PO DAILY@08,21 [facility] Stop: 12/28/18 20:59 Last Admin: 11/29/18 19:17 Dose: 100 mg Documented by: Ferrous Sulfate (Feosol) 325 mg PO DAILY@08 [facility] Stop: 12/29/18 07:59 Last Admin: 11/29/18 08:07 Dose: 325 mg Documented by: Hydrocortisone (Anusol Hc) 25 mg NH BID PRN PRN Reason: Hemorrhoids Stop: 12/28/18 17:37 Oxytocin (Pitocin) 30 units in 500 mls @ 333.333 mls/hr IV .Q1H30M PRN; Protocol PRN Reason: Bleeding Control Stop: 12/28/18 08:37 Oxytocin (Pitocin) 30 units in 500 mls @ 17 mls/hr IV .Q24H PRN; Protocol PRN Reason: Labor Induction/Augmentation Stop: 11/30/18 08:45 Last Titration: 11/28/18 16:26 Dose: Infused Documented by: Lactated Ringer's (Lr) 1,000 mls @ 125 mls/hr IV .Q8H [facility] Stop: 12/28/18 17:29 Lactated Ringer's (Lr) 1,000 mls @ 125 mls/hr IV .Q8H [facility] Stop: 12/28/18 17:44 Promethazine HCl 25 mg/ Sodium (Chloride) 51 mls @ 204 mls/hr IV Q4H PRN PRN Reason: Nausea And Vomiting Stop: 12/28/18 17:37 Oxytocin 20 units/ Lactated (Ringer's) 1,002 mls @ 125 mls/hr IV .Q8H1M PRN; Protocol PRN Reason: L&D protocol Last Admin: 11/29/18 04:45 Dose: 125 mls/hr Documented by: Ibuprofen (Motrin) 600 mg PO Q4H PRN PRN Reason: Pain Stop: 12/28/18 17:37 Last Admin: 11/29/18 21:15 Dose: 600 mg Documented by: Ketorolac Tromethamine (Toradol) 30 mg IV Q6H PRN PRN Reason: Pain Stop: 12/04/18 11:11 Magnesium Hydroxide (Milk Of Magnesia) 30 ml PO HS PRN PRN Reason: Constipation Stop: 12/28/18 17:37 Ondansetron HCl (Zofran) 4 mg IV Q4H PRN PRN Reason: Nausea And Vomiting Stop: 12/28/18 17:37 Oxycodone/Acetaminophen (Percocet 5mg/325mg) 1 - 2 tab PO Q4H PRN PRN Reason: Pain Stop: 12/13/18 11:11 Prenat Multivit/Heavy [employer] Equipment [employer]r/Iron/Folic Ac ( Vitamin) 1 tab PO DAILY@08 [facility] Stop: 12/29/18 07:59 Last Admin: 11/29/18 08:07 Dose: 1 tab Documented by: Sennosides (Senokot) 17.2 mg PO HS PRN PRN Reason: Constipation Stop: 12/28/18 17:37 Simethicone (Mylicon) 80 mg PO DAILY@08,13,17,21 [facility] Stop: 12/28/18 20:59 Last Admin: 11/29/18 21:14 Dose: 80 mg Documented by: <Justin Su MD - Last Filed: 11/30/18 08:06> Co-Signing Physician Notes Patient seen and evaluated and agree with the above findings and plan. Patient requesting discharge and is stable for discharge today Resident Activity Tracking <Rivera Gilliam DO - Last Filed: 11/30/18 07:43> Resident Involvement: Resident Care Provided Care Provided: OB Delivery
[2018-11-30] MEDS: IBUPROFEN 600 MG TAB PO PRN (07:50)
[2018-11-30] MEDS: SIMETHICONE 80 MG CHEW PO SCH (07:50)
[2018-11-30] MEDS: FERROUS SULFATE 325 MG TAB PO SCH (07:50)
[2018-11-30] MEDS: PRENATAL VITAMIN 1 TAB PO SCH (07:50)
[2018-11-30] MEDS: DOCUSATE SODIUM 100 MG CAP PO SCH (07:50)
[2018-11-30 08:02] LABS: Hematocrit (blood only) 34.6 % (37-47); Hemoglobin 11.9 g/dL (12.0-16.0)
[2018-11-30] MEDS ORDERED: BISACODYL 10 MG SUPP PR PRN (17:38)
--- NOTE | 2018-12-02 11:28 | Discharge Summary ---
PRINCIPAL DIAGNOSES: Intrauterine at 39 weeks for induction of labor, vertex, compound presentation with hand presenting. PRINCIPAL PROCEDURE: Primary low transverse section with delivery of a viable male infant, 8 pounds 8 ounces HISTORY: The patient is a 33-year-old 2, para 0-1-0-1 white female, EDC of 12/05/2018 who presented for induction of labor. She had had no contractions and prior to the admission and in the office prior to her induction the baby was in a breech presentation. On admission to labor and delivery on the morning of 11/28/2018 was in a vertex presentation, but floating. Pitocin was begun. She progressed to 4 cm dilated, 100% effaced, presenting part was still high, but continued to be vertex by ultrasound. She received epidural analgesia. She then ruptured membranes spontaneous for copious amount of clear fluid. Initially there appeared to be an ear presentation, but the cervix exam one half hour later revealed a hand presentation which could not be reduced. She was taken for a section because of the compound presentation. This was done without complications. Mother and were doing well after delivery. Jojo had an uncomplicated postop course. She remained afebrile throughout her hospital stay, was eating regular diet on her 1st postop day. She was ambulating, voiding without difficulty. Oral pain meds were controlling her pain. She was sent home in good condition. Hemoglobin on admission was 13.7, hematocrit 39.1. First postop day hemoglobin 12.0, hematocrit 34.8. Second postop day hemoglobin 11.9, hematocrit 34.6. She was sent home with usual postoperative and instructions. She is to call for temperature of 101 degrees or higher, heavy vaginal bleeding, burning with urination, increased redness, drainage or pain from her incision, calf tenderness or any other concerns. She is to be seen in the office in 6 weeks for a appointment. She was sent home with prescriptions for Motrin 600 mg p.o. q. 6 hours p.r.n. pain and Percocet 1-2 tablets p.o. q. 6 hours p.r.n. pain.
== END 2018-11-30 12:50 | disposition home or self-care (01) | DRG 788 ==
LOC: 4S1 06:57 → 4S2 20:35

== ENCOUNTER 2022-05-21 15:37 | Inpatient (IN) ==
[2022-05-21] MEDS ORDERED: KETOROLAC TROMETHAMINE 15 MG/ML VIAL ONE (16:13)
[2022-05-21 16:25] LABS: Hematocrit (blood only) 38.5 % (34.1-44.9); Hemoglobin 12.7 g/dl (12.0-16.0); Mean Corpuscular Hemoglobin 26.7 pg (25.0-34.0); Mean Corpuscular Volume 80.9 fL (80.0-100.0); Platelet Count 370 K/uL (130-400); RDW Coefficient of Variation 13.5 % (11.5-14.5); RDW Standard Deviation 39.7 fL (36.4-46.3); Red Blood Count 4.76 M/uL (3.93-5.22); White Blood Count 25.87 K/ul (4.8-10.8)
[2022-05-21] MEDS ORDERED: SODIUM CHLORIDE 0.9% 1000ML 1,000 ML IV SCH (16:30)
[2022-05-21 16:43] LABS: Basophils # (auto) 0.03 K/uL (0-0.2); Basophils % (auto) 0.1 %; Immature Granulocytes # (auto) 0.25 K/uL (0.00-0.02); Lymphocytes # (auto) 1.14 K/uL (1.2-3.4); Lymphocytes % (auto) 4.4 %; Monocytes # (auto) 0.49 K/uL (0.24-0.82); Monocytes % (auto) 1.9 %; Neutrophils # (auto) 23.96 K/uL (1.4-6.5); Neutrophils % (auto) 92.6 %
[2022-05-21 16:44] LABS: Albumin Globulin Ratio 1.2 (0.9-2); Albumin Level 4.2 gm/dl (3.4-5.0); BUN Creatinine Ratio 16.4 (10-20); Calcium 8.9 mg/dl (8.5-10.1); Creatinine Clr Calc Pharmacy 92.7 ml/min; Est GFR (African American) 121.1 ml/min; Est GFR (Non-African American) 104.5 ml/min; Globulin 3.4 gm/dl (2.5-4.0); Potassium 3.7 mmol/L (3.5-5.1); Total Protein 7.6 gm/dl (6.0-8.3)
[2022-05-21] MEDS ORDERED: MoRPHine SULFATE 4 MG/ML 1 ML CARP\\VIAL IV STA (16:56)
[2022-05-21] MEDS ORDERED: SODIUM CHLORIDE 0.9% 1000ML 1,000 ML IV ONE (16:56)
[2022-05-21] MEDS ORDERED: ONDANSETRON INJ 2 MG/ML 2 ML VIAL IV STA (16:56)
--- NOTE | 2022-05-21 17:08 | Emergency Department Note ---
History of Present Illness General Chief complaint: Abdominal Pain Stated complaint: SEVERE ABDOMINAL PAIN, HARD TO CATCH BREATHE Time Seen by Provider: 05/21/22 16:41 History of Present Illness Maximum Pain Intensity: 9 37-year-old female who presents to the emergency department with complaint of severe abdominal pain, lower bilateral chest pain and difficulty catching her breath. The patient reports that her symptoms started Adolfo, and progressively worsened throughout the weekend. The patient reports that the pain is worsened with deep breathing. She has a history of gastric bypass 9 months ago at [facility]. She has not had any other postoperative complicati ons. She denies any pain radiating into the back or lower abdomen, and rates her discomfort an 8 out of 10. She does report mild nausea without vomiting. Home Medications Medication Instructions Recorded Confirmed Type No Known Home Medications 05/21/22 05/21/22 History Allergies Allergy/AdvReac Type Severity Reaction Status Date / Time No Known Allergies Allergy Verified 05/21/22 16:33 Past Med/Surg History Medical History Diet controlled gestational diabetes mellitus (GDM) in third trimester Encounter for anatomic survey Gross hematuria History of premature delivery, currently Hx LEEP (loop electrosurgical excision procedure), cervix, Migraine headache Obesity Obesity complicating peripregnancy, antepartum Polycystic ovarian syndrome -induced diabetes Sensation of pressure in bladder area Supervision of high risk in second trimester Supervision of high risk in third trimester Urinary symptom or sign Surgical History S/P LEEP (loop electrosurgical excision procedure) S/P wisdom tooth extraction [place] teeth extracted Family History Mother Depression Grandmother (Paternal) Diabetes Grandfather (Maternal) Diabetes Grandmother (Maternal) Diabetes Grandfather (Paternal) Hypertension Other Breast cancer Denies family history of Ovarian cancer Prostate cancer Colorectal cancer Social History Smoking Status: Never smoker Second Hand Exposure: No; Hx Alcohol Use: No Hx Substance Use: No Preferred Language: Czech Beliefs That Will Affect Care: None marital status: Current Living Situation: Spouse and Family Feels Safe at Home: Yes Assistive Devices: None Review of Systems 10 system review was performed and was negative except for pertinent positives and negatives as indicated in history of present illness Physical Exam Vital Signs Vital Signs - 24 hr 05/21/22 15:41 05/21/22 16:18 05/21/22 16:40 Temperature 37.0 C Temperature Source Temporal Artery Scan Pulse Rate 121 H Pulse Rate [Apical] 115 H Pulse Rate from SpO2 Sensor Pulse Rhythm [Apical] Regular Pulse Strength [Apical] Normal Respiratory Rate 18 20 Respiratory Effort / Characteristics Non-Labored Spontaneous Non-Labored Spontaneous Respiratory Depth Normal Normal Respiratory Pattern Regular Regular Blood Pressure 144/81 H Blood Pressure [Right Arm] 122/74 Blood Pressure Mean 102 Blood Pressure Mean [Right Arm] 90 Blood Pressure Position Sitting Pulse Oximetry 97 97 Oxygen Delivery Method Room Air Room Air Room Air Sepsis Recent Fever Within 48 Hours No Sepsis New/Unexplained Change in Mental Status N/A Sepsis Action Taken by Nursing No Action Required 05/21/22 16:44 05/21/22 16:50 05/21/22 17:00 Temperature Temperature Source Pulse Rate 115 H 116 H Pulse Rate [Apical] Pulse Rate from SpO2 Sensor 115 H 114 H Pulse Rhythm [Apical] Pulse Strength [Apical] Respiratory Rate 21 24 Respiratory Effort / Characteristics Respiratory Depth Respiratory Pattern Blood Pressure 115/64 Blood Pressure [Right Arm] Blood Pressure Mean 81 Blood Pressure Mean [Right Arm] Blood Pressure Position Pulse Oximetry 97 98 Oxygen Delivery Method Sepsis Recent Fever Within 48 Hours Sepsis New/Unexplained Change in Mental Status Sepsis Action Taken by Nursing 05/21/22 17:00 05/21/22 17:10 05/21/22 18:00 Temperature Temperature Source Pulse Rate 111 H 113 H Pulse Rate [Apical] 110 H Pulse Rate from SpO2 Sensor 112 H 114 H Pulse Rhythm [Apical] Pulse Strength [Apical] Respiratory Rate 20 22 29 H Respiratory Effort / Characteristics Non-Labored Spontaneous Respiratory Depth Normal Respiratory Pattern Blood Pressure Blood Pressure [Right Arm] 104/67 Blood Pressure Mean Blood Pressure Mean [Right Arm] 79 Blood Pressure Position Pulse Oximetry 96 97 96 Oxygen Delivery Method Room Air Sepsis Recent Fever Within 48 Hours Sepsis New/Unexplained Change in Mental Status Sepsis Action Taken by Nursing 05/21/22 17:20 05/21/22 17:30 05/21/22 17:30 Temperature Temperature Source Pulse Rate 109 H 112 H Pulse Rate [Apical] Pulse Rate from SpO2 Sensor 109 H 114 H Pulse Rhythm [Apical] Pulse Strength [Apical] Respiratory Rate 21 22 Respiratory Effort / Characteristics Respiratory Depth Respiratory Pattern Blood Pressure 110/70 Blood Pressure [Right Arm] Blood Pressure Mean 83 Blood Pressure Mean [Right Arm] Blood Pressure Position Pulse Oximetry 96 96 Oxygen Delivery Method Sepsis Recent Fever Within 48 Hours Sepsis New/Unexplained Change in Mental Status Sepsis Action Taken by Nursing 05/21/22 17:40 05/21/22 17:50 05/21/22 18:00 Temperature Temperature Source Pulse Rate 110 H 112 H Pulse Rate [Apical] Pulse Rate from SpO2 Sensor 110 H 110 H Pulse Rhythm [Apical] Pulse Strength [Apical] Respiratory Rate 24 22 Respiratory Effort / Characteristics Respiratory Depth Respiratory Pattern Blood Pressure 104/67 Blood Pressure [Right Arm] Blood Pressure Mean 79 Blood Pressure Mean [Right Arm] Blood Pressure Position Pulse Oximetry 97 96 Oxygen Delivery Method Sepsis Recent Fever Within 48 Hours Sepsis New/Unexplained Change in Mental Status Sepsis Action Taken by Nursing 05/21/22 18:00 05/21/22 18:10 05/21/22 18:20 Temperature Temperature Source Pulse Rate 110 H 112 H 106 H Pulse Rate [Apical] Pulse Rate from SpO2 Sensor 108 H 106 H 109 H Pulse Rhythm [Apical] Pulse Strength [Apical] Respiratory Rate 22 25 H 22 Respiratory Effort / Characteristics Respiratory Depth Respiratory Pattern Blood Pressure Blood Pressure [Right Arm] Blood Pressure Mean Blood Pressure Mean [Right Arm] Blood Pressure Position Pulse Oximetry 95 95 96 Oxygen Delivery Method Sepsis Recent Fever Within 48 Hours Sepsis New/Unexplained Change in Mental Status Sepsis Action Taken by Nursing 05/21/22 18:30 05/21/22 18:30 05/21/22 18:40 Temperature Temperature Source Pulse Rate 110 H 108 H Pulse Rate [Apical] Pulse Rate from SpO2 Sensor 110 H 110 H Pulse Rhythm [Apical] Pulse Strength [Apical] Respiratory Rate 22 21 Respiratory Effort / Characteristics Respiratory Depth Respiratory Pattern Blood Pressure 98/62 L Blood Pressure [Right Arm] Blood Pressure Mean 74 Blood Pressure Mean [Right Arm] Blood Pressure Position Pulse Oximetry 94 97 Oxygen Delivery Method Sepsis Recent Fever Within 48 Hours Sepsis New/Unexplained Change in Mental Status Sepsis Action Taken by Nursing 05/21/22 18:50 05/21/22 19:00 05/21/22 19:00 Temperature Temperature Source Pulse Rate 112 H 110 H Pulse Rate [Apical] Pulse Rate from SpO2 Sensor 114 H 111 H Pulse Rhythm [Apical] Pulse Strength [Apical] Respiratory Rate 24 23 Respiratory Effort / Characteristics Respiratory Depth Respiratory Pattern Blood Pressure 107/56 L Blood Pressure [Right Arm] Blood Pressure Mean 73 Blood Pressure Mean [Right Arm] Blood Pressure Position Pulse Oximetry 97 97 Oxygen Delivery Method Sepsis Recent Fever Within 48 Hours Sepsis New/Unexplained Change in Mental Status Sepsis Action Taken by Nursing 05/21/22 19:10 05/21/22 19:51 05/21/22 19:58 Temperature Temperature Source Pulse Rate 112 H Pulse Rate [Apical] Pulse Rate from SpO2 Sensor 111 H 101 H Pulse Rhythm [Apical] Pulse Strength [Apical] Respiratory Rate 24 Respiratory Effort / Characteristics Respiratory Depth Respiratory Pattern Blood Pressure 119/77 Blood Pressure [Right Arm] Blood Pressure Mean 91 Blood Pressure Mean [Right Arm] Blood Pressure Position Pulse Oximetry 97 96 Oxygen Delivery Method Sepsis Recent Fever Within 48 Hours Sepsis New/Unexplained Change in Mental Status Sepsis Action Taken by Nursing 05/21/22 20:00 05/21/22 20:00 05/21/22 20:10 Temperature Temperature Source Pulse Rate 100 H 106 H Pulse Rate [Apical] Pulse Rate from SpO2 Sensor Pulse Rhythm [Apical] Pulse Strength [Apical] Respiratory Rate 24 22 Respiratory Effort / Characteristics Respiratory Depth Respiratory Pattern Blood Pressure 112/68 Blood Pressure [Right Arm] Blood Pressure Mean 82 Blood Pressure Mean [Right Arm] Blood Pressure Position Pulse Oximetry Oxygen Delivery Method Sepsis Recent Fever Within 48 Hours Sepsis New/Unexplained Change in Mental Status Sepsis Action Taken by Nursing 05/21/22 20:56 05/21/22 20:57 05/21/22 20:57 Temperature Temperature Source Pulse Rate 96 H Pulse Rate [Apical] Pulse Rate from SpO2 Sensor 91 H 96 H Pulse Rhythm [Apical] Pulse Strength [Apical] Respiratory Rate 21 Respiratory Effort / Characteristics Respiratory Depth Respiratory Pattern Blood Pressure 108/69 Blood Pressure [Right Arm] Blood Pressure Mean 82 Blood Pressure Mean [Right Arm] Blood Pressure Position Pulse Oximetry 98 96 Oxygen Delivery Method Sepsis Recent Fever Within 48 Hours Sepsis New/Unexplained Change in Mental Status Sepsis Action Taken by Nursing 05/21/22 21:00 05/21/22 21:00 05/21/22 21:10 Temperature Temperature Source Pulse Rate 95 H 100 H Pulse Rate [Apical] Pulse Rate from SpO2 Sensor 93 H 101 H Pulse Rhythm [Apical] Pulse Strength [Apical] Respiratory Rate 23 22 Respiratory Effort / Characteristics Respiratory Depth Respiratory Pattern Blood Pressure 113/71 Blood Pressure [Right Arm] Blood Pressure Mean 85 Blood Pressure Mean [Right Arm] Blood Pressure Position Pulse Oximetry 96 97 Oxygen Delivery Method Sepsis Recent Fever Within 48 Hours Sepsis New/Unexplained Change in Mental Status Sepsis Action Taken by Nursing 05/21/22 21:20 05/21/22 21:30 05/21/22 21:30 Temperature Temperature Source Pulse Rate 98 H 93 H Pulse Rate [Apical] Pulse Rate from SpO2 Sensor 99 H Pulse Rhythm [Apical] Pulse Strength [Apical] Respiratory Rate 24 20 Respiratory Effort / Characteristics Respiratory Depth Respiratory Pattern Blood Pressure 121/84 Blood Pressure [Right Arm] Blood Pressure Mean 96 Blood Pressure Mean [Right Arm] Blood Pressure Position Pulse Oximetry 97 Oxygen Delivery Method Sepsis Recent Fever Within 48 Hours Sepsis New/Unexplained Change in Mental Status Sepsis Action Taken by Nursing 05/21/22 21:40 05/21/22 21:50 05/21/22 22:00 Temperature Temperature Source Pulse Rate 103 H 93 H Pulse Rate [Apical] Pulse Rate from SpO2 Sensor 101 H 93 H Pulse Rhythm [Apical] Pulse Strength [Apical] Respiratory Rate 20 20 Respiratory Effort / Characteristics Respiratory Depth Respiratory Pattern Blood Pressure 98/61 L Blood Pressure [Right Arm] Blood Pressure Mean 73 Blood Pressure Mean [Right Arm] Blood Pressure Position Pulse Oximetry 98 96 Oxygen Delivery Method Sepsis Recent Fever Within 48 Hours Sepsis New/Unexplained Change in Mental Status Sepsis Action Taken by Nursing 05/21/22 22:00 05/21/22 22:10 05/21/22 23:00 Temperature Temperature Source Pulse Rate 95 H 89 94 H Pulse Rate [Apical] Pulse Rate from SpO2 Sensor 96 H 90 94 H Pulse Rhythm [Apical] Pulse Strength [Apical] Respiratory Rate 24 20 23 Respiratory Effort / Characteristics Respiratory Depth Respiratory Pattern Blood Pressure 117/66 Blood Pressure [Right Arm] Blood Pressure Mean 83 Blood Pressure Mean [Right Arm] Blood Pressure Position Pulse Oximetry 96 96 96 Oxygen Delivery Method Room Air Sepsis Recent Fever Within 48 Hours Sepsis New/Unexplained Change in Mental Status Sepsis Action Taken by Nursing 05/21/22 23:30 05/22/22 00:00 Temperature Temperature Source Pulse Rate 87 90 Pulse Rate [Apical] Pulse Rate from SpO2 Sensor 85 91 H Pulse Rhythm [Apical] Pulse Strength [Apical] Respiratory Rate 24 19 Respiratory Effort / Characteristics Respiratory Depth Respiratory Pattern Blood Pressure 128/74 113/61 Blood Pressure [Right Arm] Blood Pressure Mean 92 78 Blood Pressure Mean [Right Arm] Blood Pressure Position Pulse Oximetry 97 96 Oxygen Delivery Method Room Air Room Air Sepsis Recent Fever Within 48 Hours Sepsis New/Unexplained Change in Mental Status Sepsis Action Taken by Nursing CONSTITUTIONAL: Healthy and well nourished. Alert and oriented X 3. Patient appears in moderate discomfort. HEENT: No scleral icterus or conjunctival injection/pallor. Mucous membranes are dry. NECK: Full active range of motion without discomfort. LYMPHATICS: No cervical chain adenopathy. RESPIRATORY: Clear to auscultation bilaterally with no wheezing, crackles, rhonchi or stridor. CARDIOVASCULAR: Tachycardic with no murmurs, rubs or gallops. GASTROINTESTINAL: Bowel sounds are diminished in all quadrants. The patient has notable and significant abdominal tenderness to palpation without obvious rigidity, guarding or rebound. The patient is more tender through the upper quadrants. Negative McBurney's point tenderness. MUSCULOSKELETAL: Full range of motion of all joints without discomfort. INTEGUMENTARY: No rash or other significant dermatologic conditions noted. HEMATOLOGIC: No ecchymosis or petechiae. PSYCHIATRIC: Positive affect. NEUROLOGIC: No focal neurologic deficits noted. Course Course Patient history and physical exam were performed. Nurses notes were reviewed. Vital signs were reviewed, showing a mild tachycardia. The patient is normotensive and afebrile. O2 saturation is also 97% on room air. Orders were placed initially per nursing protocol, with IV site prepped with chlorhexidine. After my examination, additional orders were added, including blood cultures, lactate and procalcitonin. The patient was hydrated with a liter normal saline, and administered IV morphine and Zofran for pain and nausea. Review of initial labs shows a white count of nearly 26,000 with notable left shift and 25% bands. CMP and lipase were otherwise grossly normal. Urinalysis was questionable for infection, however this was a contaminated sample. Urine cultures are pending. An ECG shows a sinus tachycardia without any other concerning findings. Troponin was normal. With persistent pain, the patient was also administered IV Dilaudid. CT with IV and oral contrast was suggestive of an acute cholecystitis. With upper abdominal tenderness to palpation, elevated procalcitonin level and leukocytosis, ultrasound was performed, and read as no evidence for cholecystitis. Upon reevaluation, the patient still was having notable pain. An additional as needed order was placed for IV Dilaudid. The case was then discussed with Dr. Sales, ED attending physician, who also evaluated the patient, and recommends surgical and hospitalist consultation. The patient was ordered IV Zosyn. I did discuss the case with Dr. Schreiber, general surgeon on-call, who indicated that he would evaluate the patient in the morning, and has requested hospitalist admission. The case was then further discussed with [facility] hospitalist, Dr. Thompson, who agreed with admission. Please see further dictations for further treatment and final disposition. Administered Medications Hydromorphone HCl (Hydromorphone Inj 0.5 Mg/0.5 Ml Syr) 0.5 mg IV Q1H PRN PRN Reason: Pain Stop: 06/04/22 21:43 Last Admin: 05/21/22 23:41 Dose: 0.5 mg Documented By: Admin: 05/21/22 22:09 Dose: 0.5 mg Documented By: DALE Discontinued Medications Hydromorphone HCl (Hydromorphone Inj 0.5 Mg/0.5 Ml Syr) 0.5 mg IV NOW STA Stop: 05/21/22 20:08 Last Admin: 05/21/22 20:12 Dose: 0.5 mg Documented By: DALE Sodium Chloride (Nss 1000ml) 1,000 mls @ 999 mls/hr IV .Q1H1M DELORES Stop: 05/21/22 17:30 Last Infusion: 05/21/22 17:19 Dose: 0 mls/hr Documented By: Admin: 05/21/22 16:17 Dose: 999 mls/hr Documented By: MARCE Sodium Chloride (Nss 1000ml) 1,000 mls @ 999 mls/hr IV .Q1H1M ONE Stop: 05/21/22 17:56 Last Infusion: 05/21/22 17:47 Dose: 0 mls/hr Documented By: Admin: 05/21/22 17:07 Dose: 999 mls/hr Documented By: DALE Piperacillin Sod/Tazobactam Sod (Zosyn) 4.5 gm in 120 mls @ 200 mls/hr IV NOW STA; Protocol Stop: 05/21/22 22:17 Last Infusion: 05/21/22 22:50 Dose: 0 mls/hr Documented By: Admin: 05/21/22 22:08 Dose: 200 mls/hr Documented By: DALE Ioversol (Optiray 350 100ml) 85 ml IV ONCE ONE Stop: 05/21/22 19:25 Last Admin: 05/21/22 19:24 Dose: 85 ml Documented By: JOHNNY Ketorolac Tromethamine (Ketorolac Tromethamine 15 Mg/Ml Vial) Confirm Administered Dose 15 mg .ROUTE .STK-MED ONE Stop: 05/21/22 16:14 Last Admin: 05/21/22 16:15 Dose: 15 mg Documented By: MARCE Morphine Sulfate (Morphine Sulfate 4 Mg/Ml 1 Ml Carp\Vial) 4 mg IV NOW STA Stop: 05/21/22 16:57 Last Admin: 05/21/22 17:10 Dose: 4 mg Documented By: DALE Ondansetron HCl (Ondansetron Inj 2 Mg/Ml 2 Ml Vial) 4 mg IV NOW STA Stop: 05/21/22 16:57 Last Admin: 05/21/22 17:10 Dose: 4 mg Documented By: DALE Medical Decision Making Medical Records Attestation: I reviewed the patient's medical records. Home Medications Current Medication List: was personally reviewed by me Laboratory Data Attestation: I reviewed the patient's lab results. Result diagrams: 05/21/22 16:10 05/21/22 16:10 Lab Results 05/21/22 05/21/22 05/21/22 Range/Units 16:10 16:10 16:10 WBC 25.87 H (4.8-10.8) K/ul RBC 4.76 (3.93-5.22) M/uL Hgb 12.7 (12.0-16.0) g/dl Hct 38.5 (34.1-44.9) % MCV 80.9 (80.0-100.0) fL MCH 26.7 (25.0-34.0) pg MCHC 33.0 (32.0-36.0) g/dL RDW Std Deviation 39.7 (36.4-46.3) fL RDW Coeff of Annette 13.5 (11.5-14.5) % Plt Count 370 (130-400) K/uL MPV 9.0 L (9.4-12.3) fL Immature Gran % (Auto) 1.0 % Neut % (Auto) 92.6 % Lymph % (Auto) 4.4 % [facility] % (Auto) 1.9 % Eos % (Auto) 0.0 % Baso % (Auto) 0.1 % Neut # (Auto) 23.96 H (1.4-6.5) K/uL Lymph # (Auto) 1.14 L (1.2-3.4) K/uL [facility] # (Auto) 0.49 (0.24-0.82) K/uL Eos # (Auto) 0.00 (0-0.50) K/uL Baso # (Auto) 0.03 (0-0.2) K/uL Immature Gran # (Auto) 0.25 H (0.00-0.02) K/uL Sodium 136 (136-145) mmol/L Potassium 3.7 (3.5-5.1) mmol/L Chloride 101 (98-107) mmol/L Carbon Dioxide 24 (21-32) mmol/L Anion Gap 11 (3-11) BUN 12 (6-23) mg/dl Creatinine 0.73 (0.6-1.2) mg/dl Est Cr Clr Drug Dosing 92.7 ml/min Est GFR ( Amer) 121.1 ml/min Est GFR (Non-Af Amer) 104.5 ml/min BUN/Creatinine Ratio 16.4 (10-20) Glucose 83 (70-99(Fasting)) mg/dl Lactate (0.4-2.0) mmol/L Calcium 8.9 (8.5-10.1) mg/dl Total Bilirubin 1.0 (0.2-1.0) mg/dl AST 15 (13-39) U/L ALT 11 (7-52) U/L Alkaline Phosphatase 78 (34-104) U/L Troponin I High Sens 6.3 (0-14) pg/ml C-Reactive Protein 22.40 H (0-0.5) mg/dl Total Protein 7.6 (6.0-8.3) gm/dl Albumin 4.2 (3.4-5.0) gm/dl Globulin 3.4 (2.5-4.0) gm/dl Albumin/Globulin Ratio 1.2 (0.9-2) Lipase 8 L (11-82) U/L Procalcitonin (0-0.5) ng/ml Urine Color Urine Appearance (Clear) Urine pH (4.5-7.5) Ur Specific [place] (1.000-1.030) Urine Protein (Negative) Urine Glucose (UA) (Negative) Urine Ketones (Negative) Urine Blood (Negative) Urine Nitrite (Negative) Urine Bilirubin (Negative) Urine Urobilinogen (Negative) Ur Leukocyte Esterase (Negative) Urine WBC (Auto) (0-5) /hpf Urine RBC (Auto) (0-4) /hpf U Hyaline Cast (Auto) (0-5) /lpf U Epithel Cells (Auto) (0-5) /lpf Urine Bacteria (Auto) (Negative) SARS-CoV-2 (PCR) (Negative) 05/21/22 05/21/22 05/21/22 Range/Units 16:10 16:11 17:01 WBC (4.8-10.8) K/ul RBC (3.93-5.22) M/uL Hgb (12.0-16.0) g/dl Hct (34.1-44.9) % MCV (80.0-100.0) fL MCH (25.0-34.0) pg MCHC (32.0-36.0) g/dL RDW Std Deviation (36.4-46.3) fL RDW Coeff of Annette (11.5-14.5) % Plt Count (130-400) K/uL MPV (9.4-12.3) fL Immature Gran % (Auto) % Neut % (Auto) % Lymph % (Auto) % [facility] % (Auto) % Eos % (Auto) % Baso % (Auto) % Neut # (Auto) (1.4-6.5) K/uL Lymph # (Auto) (1.2-3.4) K/uL [facility] # (Auto) (0.24-0.82) K/uL Eos # (Auto) (0-0.50) K/uL Baso # (Auto) (0-0.2) K/uL Immature Gran # (Auto) (0.00-0.02) K/uL Sodium (136-145) mmol/L Potassium (3.5-5.1) mmol/L Chloride (98-107) mmol/L Carbon Dioxide (21-32) mmol/L Anion Gap (3-11) BUN (6-23) mg/dl Creatinine (0.6-1.2) mg/dl Est Cr Clr Drug Dosing ml/min Est GFR ( Amer) ml/min Est GFR (Non-Af Amer) ml/min BUN/Creatinine Ratio (10-20) Glucose (70-99(Fasting)) mg/dl Lactate 0.5 (0.4-2.0) mmol/L Calcium (8.5-10.1) mg/dl Total Bilirubin (0.2-1.0) mg/dl AST (13-39) U/L ALT (7-52) U/L Alkaline Phosphatase (34-104) U/L Troponin I High Sens (0-14) pg/ml C-Reactive Protein (0-0.5) mg/dl Total Protein (6.0-8.3) gm/dl Albumin (3.4-5.0) gm/dl Globulin (2.5-4.0) gm/dl Albumin/Globulin Ratio (0.9-2) Lipase (11-82) U/L Procalcitonin 5.19 H (0-0.5) ng/ml Urine Color Yellow Urine Appearance Cloudy A (Clear) Urine pH 5.0 (4.5-7.5) Ur Specific [place] 1.022 (1.000-1.030) Urine Protein Trace H (Negative) Urine Glucose (UA) Negative (Negative) Urine Ketones 4+ H (Negative) Urine Blood Trace H (Negative) Urine Nitrite Negative (Negative) Urine Bilirubin Negative (Negative) Urine Urobilinogen Negative (Negative) Ur Leukocyte Esterase 2+ H (Negative) Urine WBC (Auto) >30 H (0-5) /hpf Urine RBC (Auto) 0-4 (0-4) /hpf U Hyaline Cast (Auto) 1-5 (0-5) /lpf U Epithel Cells (Auto) >30 H (0-5) /lpf Urine Bacteria (Auto) 1+ H (Negative) SARS-CoV-2 (PCR) (Negative) 05/21/22 Range/Units 22:40 WBC (4.8-10.8) K/ul RBC (3.93-5.22) M/uL Hgb (12.0-16.0) g/dl Hct (34.1-44.9) % MCV (80.0-100.0) fL MCH (25.0-34.0) pg MCHC (32.0-36.0) g/dL RDW Std Deviation (36.4-46.3) fL RDW Coeff of Annette (11.5-14.5) % Plt Count (130-400) K/uL MPV (9.4-12.3) fL Immature Gran % (Auto) % Neut % (Auto) % Lymph % (Auto) % [facility] % (Auto) % Eos % (Auto) % Baso % (Auto) % Neut # (Auto) (1.4-6.5) K/uL Lymph # (Auto) (1.2-3.4) K/uL [facility] # (Auto) (0.24-0.82) K/uL Eos # (Auto) (0-0.50) K/uL Baso # (Auto) (0-0.2) K/uL Immature Gran # (Auto) (0.00-0.02) K/uL Sodium (136-145) mmol/L Potassium (3.5-5.1) mmol/L Chloride (98-107) mmol/L Carbon Dioxide (21-32) mmol/L Anion Gap (3-11) BUN (6-23) mg/dl Creatinine (0.6-1.2) mg/dl Est Cr Clr Drug Dosing ml/min Est GFR ( Amer) ml/min Est GFR (Non-Af Amer) ml/min BUN/Creatinine Ratio (10-20) Glucose (70-99(Fasting)) mg/dl Lactate (0.4-2.0) mmol/L Calcium (8.5-10.1) mg/dl Total Bilirubin (0.2-1.0) mg/dl AST (13-39) U/L ALT (7-52) U/L Alkaline Phosphatase (34-104) U/L Troponin I High Sens (0-14) pg/ml C-Reactive Protein (0-0.5) mg/dl Total Protein (6.0-8.3) gm/dl Albumin (3.4-5.0) gm/dl Globulin (2.5-4.0) gm/dl Albumin/Globulin Ratio (0.9-2) Lipase (11-82) U/L Procalcitonin (0-0.5) ng/ml Urine Color Urine Appearance (Clear) Urine pH (4.5-7.5) Ur Specific [place] (1.000-1.030) Urine Protein (Negative) Urine Glucose (UA) (Negative) Urine Ketones (Negative) Urine Blood (Negative) Urine Nitrite (Negative) Urine Bilirubin (Negative) Urine Urobilinogen (Negative) Ur Leukocyte Esterase (Negative) Urine WBC (Auto) (0-5) /hpf Urine RBC (Auto) (0-4) /hpf U Hyaline Cast (Auto) (0-5) /lpf U Epithel Cells (Auto) (0-5) /lpf Urine Bacteria (Auto) (Negative) SARS-CoV-2 (PCR) NEGATIVE (Negative) Imaging Data Attestation: I personally reviewed and interpreted this imaging study as follows: My Impression: My interpretation of a CT of the abdomen and pelvis with IV contrast does not show any bowel obstruction, oral contrast extravasation, abdominal free air, appendicitis or diverticulitis. There is questionable prominence of the gallbladder without obvious gallstones. Radiologist report was also reviewed. Gallbladder ultrasound was performed, and read as no evidence for cholecystitis. This was a [facility] reading, with local radiologist report pending. Radiologist's Impression: Abdomen/Pelvis CT 05/21/22 16:56 CT abd pelvis oral and IV con CLINICAL HISTORY: ABD pain, hi WBC, h/o gastric bypass in Mar TECHNIQUE: Helical axial images of the abdomen and pelvis were obtained and displayed. Automated dose lowering techniques and/or adjustment according to patient size were utilized for this exam. This exam was performed with intravenous contrast. COMPARISON: Comparison is made to CT abdomen pelvis 05/01/2022 FINDINGS: Lower chest: For findings above the diaphragm, please see CT chest performed same day. Liver: Unremarkable. No focal lesions are seen. Gallbladder and biliary tree: The gallbladder is distended. The wall is not definitely thickened. No intra- or extrahepatic biliary ductal dilation. Pancreas: Unremarkable, no focal lesions. Spleen: Unremarkable. Adrenals: Unremarkable. Kidneys and ureters: Unremarkable. Bladder: Unremarkable. Reproductive organs: Unremarkable. Bowel: Patient is status post gastric bypass surgery. The appendix is normal. Lymph nodes Retroperitoneal: Unremarkable. Pelvic: Unremarkable. Mesenteric: Unremarkable. Peritoneum: Normal. Vessels: Unremarkable. Abdominal wall: Unremarkable. Bones: Unremarkable. IMPRESSION: There is prominence of the gallbladder wall however no wall thickening is seen. Clinical correlation with right upper quadrant tenderness is recommended to exclude acute cholecystitis. If clinical concern remains, right upper quadrant ultrasound can be performed. ACT 112: Negative or not required by law. Electronically signed by: Aaron Kramer M.D. 05/21/2022 7:[address] 05/21/22 17:01 CT chest diagnostic w con CLINICAL HISTORY: Bilat C/P TECHNIQUE: Multidetector row helical CT of the chest was performed with intravenous contrast. Coronal and sagittal reformations were obtained. Automated dose lowering techniques and/or adjustment according to patient size were utilized for this exam. CT DOSE: 618.95 mGy.cm Comparison: None available at the time of this dictation. FINDINGS: Lungs and pleura: Minimal dependent atelectasis is seen. Heart and pericardium: Heart size is normal. No pericardial effusion. Vessels: Unremarkable. Mediastinum and rosaura: Unremarkable. Chest wall and lower neck: Unremarkable. Abdomen: For findings below the diaphragm, please refer to CT of the abdomen dated the same. Bones: Degenerative changes in the thoracic spine. IMPRESSION: Unremarkable evaluation of the chest. ACT 112: Negative or not required by law. Electronically signed by: Aaron Kramer M.D. 05/21/2022 7:40 PM ECG Data Attestation: I personally reviewed and interpreted this ECG as follows: Indication: + abdominal pain and + chest pain Rate (beats per minute): 116 Rhythm: + sinus tachycardia ECG Intervals/blocks: + Normal QRS and + Normal [place] ECG Mcwilliams: + Normal ECG ST segments: + Normal ST segments Comparison ECG Date: no prior available Blood Pressure Blood Pressure Findings: Normal blood pressure MDM Narrative Patient presents the emergency department with complaint of severe abdominal pain. Patient does have a significant history of gastric bypass 9 months ago without any previous postoperative complications. Given the patient's severe pain and prior surgical history, extensive evaluation was performed, showing a concerning significant leukocytosis and elevated procalcitonin level, concerning for bacterial infection. Lactate was fortunately normal. CT imaging does not show any obvious issues with her bypass surgery, but did suggest possibility of gallbladder prominence. Further ultrasound did not show evidence for cholecystitis although this is clinically suspected. The patient did have poor pain control while in the emergency department, and with potential for possible abdominal infection, I do feel that admission is warranted. The patient was administered IV Zosyn antibiotics. The patient did have some mild hypotension while in the emergency department, suspected to be from parenteral analgesics. She otherwise is not febrile or tachycardic, therefore I do not suspect sepsis. Impression & Plan Acute cholecystitis, Intractable generalized abdominal pain, History of gastric bypass, Leukocytosis, Elevated procalcitonin Discharge Plan Visit Data Chief Complaint: Abdominal Pain Stated Complaint: SEVERE ABDOMINAL PAIN, HARD TO CATCH BREATHE ED Provider: Thomas Sales ED Midlevel Provider: Charly Rae Discharge Problem: Acute cholecystitis, Intractable generalized abdominal pain, History of gastric bypass, Leukocytosis, Elevated procalcitonin Forms Stand Alone Forms: My [facility] Prescriptions Prescriptions: No Action No Known Home Medications Referrals Referrals: Veronique Jane CRNP [Primary Care Provider] -
[2022-05-21 17:28] LABS: C Reactive Protein 22.4 mg/dl (0-0.5)
[2022-05-21 17:33] LABS: Troponin I High Sensitivity 6.3 pg/ml (0-14)
[2022-05-21 17:38] LABS: Appearance Urine Cloudy (Clear); Bacteria Urine Automated 1+ (Negative); Bilirubin Urine Negative (Negative); Blood Urine Trace (Negative); Color Urine Yellow; Epithelial Cell Urine Auto >30 /lpf (0-5); Glucose Urine UA Negative (Negative); Ketones Urine 4+ (Negative); Leukocyte Esterase Urine 2+ (Negative); Nitrite Urine Negative (Negative); Protein Urine Trace (Negative); Specific Gravity Urine 1.022 (1.000-1.030); Urobilinogen Urine Negative (Negative); WBC Urine Automated >30 /hpf (0-5)
[2022-05-21 17:51] LABS: RBC Urine Automated 0-4 /hpf (0-4)
[2022-05-21] MEDS ORDERED: OPTIRAY 350 100ml IV ONE (19:24)
--- NOTE | 2022-05-21 19:42 | CT Scan Report ---
CT chest diagnostic w con CLINICAL HISTORY: Bilat C/P TECHNIQUE: Multidetector row helical CT of the chest was performed with intravenous contrast. Coronal and sagittal reformations were obtained. Automated dose lowering techniques and/or adjustment accord ing to patient size were utilized for this exam. CT DOSE: 618.95 mGy.cm Comparison: None available at the time of this dictation. FINDINGS: Lungs and pleura: Minimal dependent atelectasis is seen. Heart and pericardium: Heart size is normal. No pericardial effusion. Vessels: Unremarkable. Mediastinum and rosaura: Unremarkable. Chest wall and lower neck: Unremarkable. Abdomen: For findings below the diaphragm, please refer to CT of the abdomen dated the same. Bones: Degenerative changes in the thoracic spine. IMPRESSION: Unremarkable evaluation of the chest. ACT 112: Negative or not required by law. Electronically signed by: Aaron Kramer M.D. 05/21/2022 7:40 PM
--- NOTE | 2022-05-21 19:48 | CT Scan Report ---
CT abd pelvis oral and IV con CLINICAL HISTORY: ABD pain, hi WBC, h/o gastric bypass in Mar TECHNIQUE: Helical axial images of the abdomen and pelvis were obtained and displayed. Automated dose lowering techniques and/or adjustment according to patient size were utilized for this exam. This e xam was performed with intravenous contrast. COMPARISON: Comparison is made to CT abdomen pelvis 05/01/2022 FINDINGS: Lower chest: For findings above the diaphragm, please see CT chest performed same day. Liver: Unremarkable. No focal lesions are seen. Gallbladder and biliary tree: The gallbladder is distended. The wall is not definitely thickened. No intra- or extrahepatic biliary ductal dilation. Pancreas: Unremarkable, no focal lesions. Spleen: Unremarkable. Adrenals: Unremarkable. Kidneys and ureters: Unremarkable. Bladder: Unremarkable. Reproductive organs: Unremarkable. Bowel: Patient is status post gastric bypass surgery. The appendix is normal. Lymph nodes Retroperitoneal: Unremarkable. Pelvic: Unremarkable. Mesenteric: Unremarkable. Peritoneum: Normal. Vessels: Unremarkable. Abdominal wall: Unremarkable. Bones: Unremarkable. IMPRESSION: There is prominence of the gallbladder wall however no wall thickening is seen. Clinical correlation with right upper quadrant tenderness is recommended to exclude acute cholecystitis. If clinical quirino rn remains, right upper quadrant ultrasound can be performed. ACT 112: Negative or not required by law. Electronically signed by: Aaron Kramer M.D. 05/21/2022 7:45 PM
[2022-05-21] MEDS ORDERED: HYDROmorphone INJ 0.5 MG/0.5 ML SYR IV STA (20:07)
[2022-05-21] MEDS ORDERED: PIPERACILLIN/TAZOBACTAM 4.5 GM/120 ML BAG IV STA (21:42)
[2022-05-21] MEDS ORDERED: PIPERACILLIN/TAZOBACTAM 4.5 GM in DEXTROSE 5% 100 ML IV ONE (21:42)
[2022-05-21] MEDS: HYDROmorphone INJ 0.5 MG/0.5 ML SYR IV PRN ×2 (22:09→23:41)
--- NOTE | 2022-05-21 23:11 | History & Physical Report ---
Date of Service May 21, 2022 Assessment & Plan (1) Cholecystitis: Plan: Jojo Wilburn is a 37-year-old female with PMH of gastric [place] 9mo [place] [facility] [place]raines, depression/anxiety, PCOS who presented due to abdominal pain of 3 days' duration. Abdominal pain - CTA A/P suggestive of gallbladder pathology, leukocytosis of 25K+, CRP 22, procal 5, lipase negative - Suspicious for cholecystitis despite no obvious findings on RUQ US - Ordered HIDA scan - Will continue Zosyn for empiric coverage of GI infection - NPO, IVF with LR @ 100 cc/h - General Surgery consulted, appreciate recs - Antiemetics and analgesics PRN - Admit to Medsurg DVT ppx: SCDs FEN/GI: NPO, LR @ 100 cc/h Dispo: MedSurg, Surgery consulted CODE STATUS: Full History of Present Illness Primary Care Provider: MINNIE Ferrer Jojo Wilburn is a 37-year-old female with PMH of gastric bypass 9mo ago [place] [facility] [place] migraines, depression/anxiety, PCOS who presented due to abdominal pain of 3 days' duration. Pain is rated at 8/10 at worst. She also has associated nausea, but no vomiting, bilateral lower chest pain and shortness of breath. She denies f/c, LANDERS, dizzine ss, weakness, numbness, palpitations, QUIÑONES, rashes, myalgias, arthralgias, diarrhea, bloody/dark stool, hematemesis, dysuria, urinary freq/urgency. In the ED patient had lab work significant for WBC of 25.87 with neutrophilic predominance, CRP of 22.40, procalcitonin of 5.19, lipase of 8, normal electrolytes, lactate normal at 0.5. UA with 2+ LE, 1+ bacteria, 4+ ketones, trace blood, neg nitrites. CT A/P showing prominence of the gallbladder wall however no wall thickening -- clinical correlation with right upper quadrant tenderness is recommended to exclude acute cholecystitis. Due to symptomatology, RUQ US was obtained, which showed mildly distended gallbladder w/o wall thickening or pericholecystic fluid, no cholelithiasis, no sonographic evidence for cholecystitis or choledocholithiasis. Chest CT was unremarkable. EKG showing sinus tachycardia without signs of ischemia. Patient was administered morphine 4mg IV x2, Dilaudid 0.5mg IV x2, Zofran 4mg IV x1, NSS 1L bolus x2, and Zosyn 4.5g x1. ED provider contacted General Surgery who agreed to consult on the case. Allergies Allergy/AdvReac Type Severity Reaction Status Date / Time No Known Allergies Allergy Verified 05/21/22 16:33 Home Medications Medication Instructions Recorded Confirmed Type No Known Home Medications 05/21/22 05/21/22 History Past Med/Surg History Medical History Diet controlled gestational diabetes mellitus (GDM) in third trimester Encounter for anatomic survey Gross hematuria History of premature delivery, currently Hx LEEP (loop electrosurgical excision procedure), cervix, Migraine headache Obesity Obesity complicating peripregnancy, antepartum Polycystic ovarian syndrome -induced diabetes Sensation of pressure in bladder area Supervision of high risk in second trimester Supervision of high risk in third trimester Urinary symptom or sign Surgical History S/P LEEP (loop electrosurgical excision procedure) S/P wisdom tooth extraction [place] teeth extracted Family History Mother Depression Grandmother (Paternal) Diabetes Grandfather (Maternal) Diabetes Grandmother (Maternal) Diabetes Grandfather (Paternal) Hypertension Other Breast cancer Denies family history of Ovarian cancer Prostate cancer Colorectal cancer Social History Smoking Status: Never smoker Second Hand Exposure: No; Hx Alcohol Use: No Hx Substance Use: No Preferred Language: Salvadorean Beliefs That Will Affect Care: None marital status: Current Living Situation: Spouse and Family Feels Safe at Home: Yes Assistive Devices: None Review of Systems Review of Systems: per HPI Physical Exam Physical Exam: GENERAL: A&Ox3. Uncomfortable. HEENT: PERRL, EOMI. Moist mucous membranes. CHEST/LUNGS: CTAB A/P. No crackles, wheezes, rales, rhonchi. HEART: RRR. No m/g/r. No carotid bruits. ABDOMEN: Diffuse TTP w/o rebound, guarding, or distension/rigidity. Astudillo sign positive. BS+. EXTREMITIES: No cyanosis, no clubbing, no edema SKIN: Warm and dry. No rashes or lesions. PSYCHIATRIC: Euthymic affect, no SI, no pressured speech, no hallucinations NEUROLOGIC: No FND. Results & Data Results & Data ([facility]) Vital Signs (Past 12 Hours) Vital Signs Temp Pulse Pulse Resp BP BP Pulse Ox 05/21/22 22:10 89 20 96 05/21/22 22:00 95 H 24 96 05/21/22 22:00 98/61 L 05/21/22 21:50 93 H 20 96 05/21/22 21:40 103 H 20 98 05/21/22 21:30 93 H 20 05/21/22 21:30 121/84 05/21/22 21:20 98 H 24 97 05/21/22 21:10 100 H 22 97 05/21/22 21:00 95 H 23 96 05/21/22 21:00 113/71 05/21/22 20:57 108/69 05/21/22 20:57 96 H 21 96 05/21/22 20:56 98 05/21/22 20:10 106 H 22 05/21/22 20:00 100 H 24 05/21/22 20:00 112/68 05/21/22 19:58 119/77 05/21/22 19:51 96 05/21/22 19:10 112 H 24 97 05/21/22 19:00 110 H 23 97 05/21/22 19:00 107/56 L 05/21/22 18:50 112 H 24 97 05/21/22 18:40 108 H 21 97 05/21/22 18:30 110 H 22 94 05/21/22 18:30 98/62 L 05/21/22 18:20 106 H 22 96 05/21/22 18:10 112 H 25 H 95 05/21/22 18:00 110 H 22 95 05/21/22 18:00 104/67 05/21/22 17:50 112 H 22 96 05/21/22 17:40 110 H 24 97 05/21/22 17:30 112 H 22 96 05/21/22 17:30 110/70 05/21/22 17:20 109 H 21 96 05/21/22 18:00 110 H 29 H 104/67 96 05/21/22 17:10 113 H 22 97 12/18/22 17:00 111 H 20 96 05/21/22 17:00 115/64 05/21/22 16:50 116 H 24 98 05/21/22 16:44 115 H 21 97 05/21/22 16:40 115 H 20 122/74 97 05/21/22 16:18 05/21/22 15:41 37.0 C 121 H 18 144/81 H 97 O2 Del Method 05/21/22 22:10 05/21/22 22:00 05/21/22 22:00 05/21/22 21:50 05/21/22 21:40 05/21/22 21:30 05/21/22 21:30 05/21/22 21:20 05/21/22 21:10 05/21/22 21:00 05/21/22 21:00 05/21/22 20:57 05/21/22 20:57 05/21/22 20:56 05/21/22 20:10 05/21/22 20:00 05/21/22 20:00 05/21/22 19:58 05/21/22 19:51 05/21/22 19:10 05/21/22 19:00 05/21/22 19:00 05/21/22 18:50 05/21/22 18:40 05/21/22 18:30 05/21/22 18:30 05/21/22 18:20 05/21/22 18:10 05/21/22 18:00 05/21/22 18:00 05/21/22 17:50 05/21/22 17:40 05/21/22 17:30 05/21/22 17:30 05/21/22 17:20 05/21/22 18:00 Room Air 05/21/22 17:10 05/21/22 17:00 05/21/22 17:00 05/21/22 16:50 05/21/22 16:44 05/21/22 16:40 Room Air 05/21/22 16:18 Room Air 05/21/22 15:41 Room Air Code Status & VTE Plan VTE Prophylaxis Plan VTE Prophylaxis will be ordered: Yes Supervising Physician Co-Signing Physician Notes Patient seen and examined, chart reviewed, case discussed with Dr. Kenzie Olivera and I agree with the assessment and plan as documented above. In brief, patient is a 37yo female s/p gastric bypass surgery in August 2021 presenting with upper abdominal pain. CT with possible acute cholecystitis. Patient is afebrile, HD stable. She appears ill. In abdominal discomfort. Skin - intact HEENT - MMM, Neck supple Heart - +S1/S2, regular, no m/r/g Lungs - CTA Abd - +BS, soft, tender in upper abdomen mostly RUQ with voluntary guarding Ext - warm, well perfused Labs and images reviewed. WBC is elevated at 25.87. CRP is elevated at 22.4 and procalcitonin = 5.19. LFTs are within normal limits. Assessment/Plan -Zosyn, pain control and antiemetics -General surgery consultation appreciated -HIDA scan -Remainder as above Resident Activity Tracking Resident Involvement: Resident Care Provided Care Provided: [facility]
--- NOTE | 2022-05-21 23:48 | Emergency Department Note ---
ED Visit Note I have personally evaluated this patient examined her and reviewed the pertinent labs and data. I have discussed the case with Thomas Rae, the physician assistant clinical nurse manager and agree with the plan. Please refer to the PA note. This patient comes in with abdominal pain she has a history of gastric bypass earlier this year but has recovered from that. Her lab work reveals a significant elevated white count but normal lactic acid. Her procalcitonin is also elevated. She was hydrated and given pain medication on my exam she does seem to be tender diffusely but mostly in the upper abdomen more so on the right. Her CAT scan shows possible gallbladder disease however ultrasound does not suggest that. I still think it is possible this is gallbladder disease. We have consulted Dr. Armando Schreiber from surgery and the patient was seen by Dr. Thompson in the ED from medicine. They will admit her for IV hydration antibiotics and further treatment and evaluation and surgical consultation .
--- NOTE | 2022-05-22 00:15 | Billing Data ---
Date of Service May 21, 2022 Coding Level of Care Code 79838 Initial Inpt Care Lvl 2
[2022-05-22] MEDS ORDERED: HYDROmorphone INJ 0.5 MG/0.5 ML SYR IV PRN (01:51)
[2022-05-22] MEDS ORDERED: ONDANSETRON INJ 2 MG/ML 2 ML VIAL IV PRN (01:51)
[2022-05-22] MEDS: HYDROmorphone INJ 0.5 MG/0.5 ML SYR IV PRN ×5 (02:03→20:59)
[2022-05-22] MEDS: LACTATED RINGER'S 1,000 ML IV SCH ×3 (02:05→23:01)
[2022-05-22] MEDS: PIPERACILLIN/TAZOBACTAM 3.375 GM in DEXTROSE 5% 100 ML IV SCH ×2 (03:52→12:46)
[2022-05-22] MEDS: ACETAMINOPHEN 1,000 MG/100 ML VIAL IV PRN ×2 (03:58→15:26)
--- NOTE | 2022-05-22 06:21 | Electrocardiogram Report ---
Test Reason : Blood Pressure : / mmHG Vent. Rate : 116 BPM Atrial Rate : 116 BPM P-R Int : 128 ms QRS Dur : 078 ms QT Int : 316 ms P-R-T Axes : 028 069 016 degrees QTc Int : 439 ms Sinus tachycardia with Premature atrial complexes Nonspecific T wave abnormality Abnormal ECG No previous ECGs available Confirmed by Jay Dubose ([id number]) on 05/22/2022 6:20:54 AM Referred By: Confirmed By:Jay Dubose
--- NOTE | 2022-05-22 07:09 | Ultrasound Report ---
ABDOMINAL ULTRASOUND, RIGHT UPPER QUADRANT HISTORY: Generalized Abd pain, CT suggesting cholecystitis. COMPARISON: Abdomen and pelvis CT 05/21/2022. FINDINGS: Pancreas: Obscured by overlying bowel gas Liver: Unremarkable. Gallbladder: No gallbladder wall thickening. No gallstones. The gallbladder is distended. Negative so nographic Astudillo sign. CBD: 2 mm. Right kidney: No hydronephrosis. IMPRESSION: Distended gallbladder. No gallbladder wall thickening or gallstones. ACT 112: Negative or not required by law. Electronically signed by: Yaron Her M.D. 05/22/2022 7:06 AM
[2022-05-22 07:43] LABS: Basophils # (auto) 0.04 K/uL (0-0.2); Basophils % (auto) 0.2 %; Eosinophils # (auto) 0.04 K/uL (0-0.50); Eosinophils % (auto) 0.2 %; Hemoglobin 9.5 g/dl (12.0-16.0); Immature Granulocytes # (auto) 0.09 K/uL (0.00-0.02); Immature Granulocytes % (auto) 0.5 %; Lymphocytes # (auto) 2.13 K/uL (1.2-3.4); Lymphocytes % (auto) 12.8 %; Mean Corpuscular Hemoglobin 26.7 pg (25.0-34.0); Mean Corpuscular Hgb Conc 32.8 g/dL (32.0-36.0); Mean Corpuscular Volume 81.5 fL (80.0-100.0); Mean Platelet Volume 9.5 fL (9.4-12.3); Monocytes # (auto) 0.56 K/uL (0.24-0.82); Monocytes % (auto) 3.4 %; Neutrophils # (auto) 13.74 K/uL (1.4-6.5); Neutrophils % (auto) 82.9 %; Platelet Count 301 K/uL (130-400); RDW Coefficient of Variation 13.8 % (11.5-14.5); RDW Standard Deviation 40.7 fL (36.4-46.3); Red Blood Count 3.56 M/uL (3.93-5.22)
[2022-05-22 08:17] LABS: Albumin Globulin Ratio 1.2 (0.9-2); Albumin Level 3.2 gm/dl (3.4-5.0); BUN Creatinine Ratio 19.4 (10-20); Calcium 8.2 mg/dl (8.5-10.1); Creatinine Clr Calc Pharmacy 109.5 ml/min; Est GFR (African American) 132.6 ml/min; Est GFR (Non-African American) 114.4 ml/min; Globulin 2.7 gm/dl (2.5-4.0); Potassium 3.1 mmol/L (3.5-5.1); Total Protein 5.9 gm/dl (6.0-8.3)
--- NOTE | 2022-05-22 08:40 | Nuclear Medicine Report ---
NUCLEAR HEPATOBILIARY SCAN CLINICAL HISTORY: Right upper quadrant abdominal pain. COMPARISON STUDY: Abdominal ultrasound and CT dated 05/21/2022. TECHNIQUE: Dynamic images of the liver and anterior abdomen were obtained every 5 minutes for a total of 40 minutes following the IV administration of 5.6 mCi of technetium 99m Mebrofenin. FINDINGS: The hepatobiliary scan shows prompt and homogeneous hepatic uptake. There is visualized act ivity within the intra and extrahepatic biliary tree at 10 minutes, and within the gallbladder at 10 minutes. There is normal biliary to bowel transit, with small bowel visualized by 10 minutes. IMPRESSION: Unremarkable nuclear hepatobiliary scan. There is no scintigraphic evidence of cholecyst itis. ACT 112: Negative or not required by law. Electronically signed by: Garry Drummond M.D. 05/22/2022 8:39 AM
--- NOTE | 2022-05-22 10:20 | Surgery Consultation ---
Date of Consultation May 22, 2022 Assessment & Plan (1) Intractable generalized abdominal pain: CT images and results personally viewed by myself, no CT evidence for cholecystitis HIDA images and results personally viewed by myself, gallbladder filling after 10 minutes Her leukocytosis is improved She does not have acute cholecystitis or even cholelithiasis She did have a drop in her hemoglobin, consideration can be given to a marginal ulcer as a cause of her pain No plans for any surgical intervention, surgery will sign off please call with any questions or concerns If she fails to improve, would recommend reaching out to her bypass surgeon at [facility] (2) History of gastric bypass: History of Present Illness Reason for Consultation: Abdominal pain, possible cholecystitis Attending Physician: Mirza Burr MD History of Present Illness This is a 29-year-old female presented to the ER last night with diffuse abdominal pain worse in the upper abdomen for about 2 days. She states the pain is sharp in nature, without radiation and not necessarily associated with eating. She has a history of a lap Marcus-en-Y gastric bypass in [place] 9 months ago. She denies any fevers or chills. She denies any dysuria. Denies any nausea or vomiting. She is a non-smoker. She had a normal bowel movement yesterday afternoon. Allergies Allergy/AdvReac Type Severity Reaction Status Date / Time No Known Allergies Allergy Verified 05/21/22 16:33 Home Medications Medication Instructions Recorded Confirmed Type No Known Home Medications 05/21/22 05/21/22 History Patient History Medical History Diet controlled gestational diabetes mellitus (GDM) in third trimester Encounter for anatomic survey Gross hematuria History of premature delivery, currently Hx LEEP (loop electrosurgical excision procedure), cervix, Migraine headache Obesity Obesity complicating peripregnancy, antepartum Polycystic ovarian syndrome -induced diabetes Sensation of pressure in bladder area Supervision of high risk in second trimester Supervision of high risk in third trimester Urinary symptom or sign Surgical History S/P LEEP (loop electrosurgical excision procedure) S/P wisdom tooth extraction [place] teeth extracted Family History Mother Depression Grandmother (Paternal) Diabetes Grandfather (Maternal) Diabetes Grandmother (Maternal) Diabetes Grandfather (Paternal) Hypertension Other Breast cancer Denies family history of Ovarian cancer Prostate cancer Colorectal cancer Social History Smoking Status: Never smoker Second Hand Exposure: No; Hx Alcohol Use: Yes Alcohol type: wine Hx Substance Use: No Preferred Language: Nicaraguan Communication Ability: Effective Full Stack Web Developer Required: No Beliefs That Will Affect Care: None marital status: Current Living Situation: Family Feels Safe at Home: Yes Assistive Devices: None Review of Systems Constitutional: no fever and no chills Eyes: no worsening vision Ear, Nose, Mouth, Throat: no ear pain and no hearing loss Respiratory: no cough and no dyspnea Cardiovascular: no chest pain and no dyspnea on exertion Gastrointestinal: + abdominal pain; no nausea, no vomiting, no constipation and no diarrhea/loose stools Genitourinary: no dysuria Musculoskeletal: no back pain and no neck pain Integumentary: no acne, no non-healing lesions and no skin ulcer Neurologic: no headache(s) Psychiatric: + depression; no behavioral changes Hematologic / Lymphatic: no easy bleeding and no easy bruising Physical Exam Constitutional: WD/WN, vitals as above Eyes: PERRL, conjunctivae normal, anicteric sclerae ENMT: external ear and nose normal, oropharynx normal Neck: trachea midline, no thyromegaly Respiratory: normal respiratory effort, lungs clear to auscultation Cardiovascular: RRR, no murmur, no edema Gastrointestinal (Abdomen): Inspection/Auscultation: abdomen normal to inspection; abdomen not distended Percussion/Palpation: + abdomen tender (Mild diffuse) and abdomen soft; no guarding, abdomen not rigid and no hernia Negative Astudillo's Musculoskeletal: no cyanosis or clubbing, extremities motor strength 5/5 Skin: no rashes, warm and dry Neurologic: PERRL, EOMI, accommodation nl, no face palsy, no dysarthria Psychiatric: A+Ox3, euthymic affect Results & Data ([facility]) Vital Signs (Past 12 Hours) Vital Signs Temp Pulse Pulse Pulse Resp BP BP 05/22/22 08:35 36.5 C 72 18 99/64 L 05/22/22 02:08 90 114/81 05/22/22 01:54 37.1 C 112 H 20 05/22/22 01:00 81 22 107/74 05/22/22 00:00 90 19 113/61 05/21/22 23:30 87 24 128/74 05/21/22 23:00 94 H 23 117/66 BP Pulse Ox O2 Del Method 05/22/22 08:35 96 Room Air 05/22/22 02:08 05/22/22 01:54 145/81 H 96 Room Air 05/22/22 01:00 95 Room Air 05/22/22 00:00 96 Room Air 05/21/22 23:30 97 Room Air 05/21/22 23:00 96 Room Air Diagnostic Findings NUCLEAR HEPATOBILIARY SCAN CLINICAL HISTORY: Right upper quadrant abdominal pain. COMPARISON STUDY: Abdominal ultrasound and CT dated 05/21/2022. TECHNIQUE: Dynamic images of the liver and anterior abdomen were obtained every 5 minutes for a total of 40 minutes following the IV administration of 5.6 mCi of technetium 99m Mebrofenin. FINDINGS: The hepatobiliary scan shows prompt and homogeneous hepatic uptake. There is visualized activity within the intra and extrahepatic biliary tree at 10 minutes, and within the gallbladder at 10 minutes. There is normal biliary to bowel transit, with small bowel visualized by 10 minutes. IMPRESSION: Unremarkable nuclear hepatobiliary scan. There is no scintigraphic evidence of cholecystitis. PG Care Time/CCT Total # of Minutes Spent Total Time Spent with Patient: Total time spent is greater than 50% in coordination of care (as documented) at patient's floor/unit and/or counseling patient: Coding Level of Care Code 68881 Office/OBS Consult Lvl 5 Diagnoses Intractable generalized abdominal pain R10.84 History of gastric bypass Z98.84
[2022-05-22] MEDS ORDERED: PANTOprazole 40 MG TAB PO STA (12:18)
--- NOTE | 2022-05-22 15:03 | Hospitalist Progress Note ---
Date of Service May 22, 2022 Assessment & Plan (1) Gastritis: Plan: likely stress induced- Casper carson can be tested- GI to see her - with 3 gm drop in Hb , ? bleeding PUD No stool passed, will repeat H and H PPI started po. Sucralfate qid Cholecystitis ruled out- normal HIDA patient wishes to get GI opinion- they ve been consulted. (2) Hypokalemia: Plan: replace iv and check in am. (3) Depression with anxiety: Plan: sertraline 50 mg daily and Buspar resumed 10 mg bid ( not taking at home) It has been over 3 months since she saw PCP- did not RTC Oct after start of sertraline Feb 2022 (4) Leukocytosis: Plan: Zosyn stopped. No infection (5) History of gastric bypass: Plan: resume [place]. Gets q 3 months b12 shots Plan start regular diet- patient declined a soft diet as has restrictions such as no mashed potatoes post gastric bypass Admission and Anticipated Discharge Date Admission Date: May 21, 2022 Subjective seen at 1230 h c/o 9/10 upper abd pain earlier . h/O GASTRIC BYPASS August 2021 No abd pain until 3 days ago when she ahd twinges of abd pain and enxt day felt like someone was "hugging me really tight like squeezing"/ Mild nausea , no vomiting. Ate last meal 2 days ago. Last BM yesterday 1 pm. No constipation / diarrhea No bloody stool. No prior Gi diagnosis such as PUD. No dysruia or change on urinary frequency Recently on 02/20 started back on sertraline after some years - h/o depression, and recent panic attacks. Says her mood is better Works in [employer] . Got this year and has two kids : 5 and 8 year old who are being cared for by her ex . sOCIAL DRINKER-one or two drinks, NO ILLCIIT DRUG USE OR SMOKING Later told nurse she saw Hu CORDOVA ( declined any GI history when I asked) Physical Exam Physical Exam: lying in bed,anxious, in no acute distress, briefly tearful "no one will tell me what is wrong with me". moist tongue- 100ml/hr LR ongoing anicteric sclerae, make up on face and eyes no thyromegaly Chest : CTA CVS : s2 s2 RRR Abd : soft, non distended, tender epigastrium w guarding Ext : no c/c/edema Results & Data Results & Data ([facility]) Vital Signs (Past 12 Hours) Vital Signs Temp Pulse Resp BP Pulse Ox O2 Del Method 05/22/22 08:35 36.5 C 72 18 99/64 L 96 Room Air Laboratory Results 05/21/22 16:11 Urine Culture - Preliminary Urine,Clean Catch Pin-point growth present, reincubating. 05/21/22 17:01 Aerobic Blood Culture - Pending Blood Anaerobic Blood Culture - Pending 05/21/22 17:01 Aerobic Blood Culture - Pending Blood Anaerobic Blood Culture - Pending 05/22/22 05/22/22 05/21/22 06:46 06:46 22:40 WBC 16.60 H RBC 3.56 L Hgb 9.5 L D Hct 29.0 L MCV 81.5 MCH 26.7 MCHC 32.8 RDW Std Deviation 40.7 RDW Coeff of Annette 13.8 Plt Count 301 MPV 9.5 Immature Gran % (Auto) 0.5 Neut % (Auto) 82.9 Lymph % (Auto) 12.8 Creek % (Auto) 3.4 Eos % (Auto) 0.2 Baso % (Auto) 0.2 Neut # (Auto) 13.74 H Lymph # (Auto) 2.13 Creek # (Auto) 0.56 Eos # (Auto) 0.04 Baso # (Auto) 0.04 Immature Gran # (Auto) 0.09 H Sodium 136 Potassium 3.1 L Chloride 105 Carbon Dioxide 24 Anion Gap 7 BUN 12 Creatinine 0.62 Est Cr Clr Drug Dosing 109.5 Est GFR ( Amer) 132.6 Est GFR (Non-Af Amer) 114.4 BUN/Creatinine Ratio 19.4 Glucose 82 Lactate Calcium 8.2 L Total Bilirubin 1.0 AST 12 L ALT 8 Alkaline Phosphatase 61 Troponin I High Sens C-Reactive Protein Total Protein 5.9 L D Albumin 3.2 L Globulin 2.7 Albumin/Globulin Ratio 1.2 Lipase Procalcitonin Urine Color Urine Appearance Urine pH Ur Specific [place] Urine Protein Urine Glucose (UA) Urine Ketones Urine Blood Urine Nitrite Urine Bilirubin Urine Urobilinogen Ur Leukocyte Esterase Urine WBC (Auto) Urine RBC (Auto) U Hyaline Cast (Auto) U Epithel Cells (Auto) Urine Bacteria (Auto) SARS-CoV-2 (PCR) NEGATIVE 05/21/22 05/21/22 05/21/22 17:01 16:11 16:10 WBC RBC Hgb Hct MCV MCH MCHC RDW Std Deviation RDW Coeff of Annette Plt Count MPV Immature Gran % (Auto) Neut % (Auto) Lymph % (Auto) Creek % (Auto) Eos % (Auto) Baso % (Auto) Neut # (Auto) Lymph # (Auto) Creek # (Auto) Eos # (Auto) Baso # (Auto) Immature Gran # (Auto) Sodium Potassium Chloride Carbon Dioxide Anion Gap BUN Creatinine Est Cr Clr Drug Dosing Est GFR ( Amer) Est GFR (Non-Af Amer) BUN/Creatinine Ratio Glucose Lactate 0.5 Calcium Total Bilirubin AST ALT Alkaline Phosphatase Troponin I High Sens C-Reactive Protein Total Protein Albumin Globulin Albumin/Globulin Ratio Lipase Procalcitonin 5.19 H Urine Color Yellow Urine Appearance Cloudy A Urine pH 5.0 Ur Specific [place] 1.022 Urine Protein Trace H Urine Glucose (UA) Negative Urine Ketones 4+ H Urine Blood Trace H Urine Nitrite Negative Urine Bilirubin Negative Urine Urobilinogen Negative Ur Leukocyte Esterase 2+ H Urine WBC (Auto) >30 H Urine RBC (Auto) 0-4 U Hyaline Cast (Auto) 1-5 U Epithel Cells (Auto) >30 H Urine Bacteria (Auto) 1+ H SARS-CoV-2 (PCR) 05/21/22 05/21/22 05/21/22 16:10 16:10 16:10 WBC 25.87 H RBC 4.76 Hgb 12.7 Hct 38.5 MCV 80.9 MCH 26.7 MCHC 33.0 RDW Std Deviation 39.7 RDW Coeff of Annette 13.5 Plt Count 370 MPV 9.0 L Immature Gran % (Auto) 1.0 Neut % (Auto) 92.6 Lymph % (Auto) 4.4 Creek % (Auto) 1.9 Eos % (Auto) 0.0 Baso % (Auto) 0.1 Neut # (Auto) 23.96 H Lymph # (Auto) 1.14 L Creek # (Auto) 0.49 Eos # (Auto) 0.00 Baso # (Auto) 0.03 Immature Gran # (Auto) 0.25 H Sodium 136 Potassium 3.7 Chloride 101 Carbon Dioxide 24 Anion Gap 11 BUN 12 Creatinine 0.73 Est Cr Clr Drug Dosing 92.7 Est GFR ( Amer) 121.1 Est GFR (Non-Af Amer) 104.5 BUN/Creatinine Ratio 16.4 Glucose 83 Lactate Calcium 8.9 Total Bilirubin 1.0 AST 15 ALT 11 Alkaline Phosphatase 78 Troponin I High Sens 6.3 C-Reactive Protein 22.40 H Total Protein 7.6 Albumin 4.2 Globulin 3.4 Albumin/Globulin Ratio 1.2 Lipase 8 L Procalcitonin Urine Color Urine Appearance Urine pH Ur Specific [place] Urine Protein Urine Glucose (UA) Urine Ketones Urine Blood Urine Nitrite Urine Bilirubin Urine Urobilinogen Ur Leukocyte Esterase Urine WBC (Auto) Urine RBC (Auto) U Hyaline Cast (Auto) U Epithel Cells (Auto) Urine Bacteria (Auto) SARS-CoV-2 (PCR) Medications Administered Home Medications Medication Instructions Recorded Confirmed Last Taken No Known Home Medications 05/21/22 05/21/22 Unknown Active Medications Generic Name Dose Route Start Last Admin Trade Name Freq PRN Reason Stop Dose Admin Hydromorphone HCl 0.5 mg 05/22/22 01:51 05/22/22 11:43 Hydromorphone Inj 0.5 Mg/0.5 Ml Syr IV 06/05/22 01:50 0.5 mg Q3H PRN Administration Pain (8,9,10) Lactated Ringer's 1,000 mls @ 100 mls/hr 05/22/22 01:51 05/22/22 12:11 Lr IV 06/21/22 01:50 100 mls/hr .Q10H DELORES Administration Acetaminophen 1,000 mg in 100 mls @ 400 mls/hr 05/22/22 01:51 05/22/22 04:21 Ofirmev IV 05/25/22 01:50 Infused Q8H PRN Infusion Pain (1,2,3,4) PG Care Time/CCT Total # of Minutes Spent Total Time Spent with Patient: Total time spent is greater than 50% in coordination of care (as documented) at patient's floor/unit and/or counseling patient: Coding Level of Care Code 39756 Subseq Hosp Care Lvl 2 Diagnoses Gastritis K29.70 Hypokalemia E87.6 Depression with anxiety F41.8 Leukocytosis D72.829 History of gastric bypass Z98.84
[2022-05-22] MEDS: SUCRALFATE 1 GM/10 ML UDC PO SCH ×3 (15:14→21:01)
[2022-05-22] MEDS: POTASSIUM CHLORIDE / WTR 10 MEQ/100 ML PLCT IV SCH ×3 (15:30→18:19)
[2022-05-22 16:14] LABS: Hematocrit (blood only) 28.6 % (34.1-44.9); Hemoglobin 9.4 g/dl (12.0-16.0)
--- NOTE | 2022-05-22 16:37 | Gastrointestinal Consultation ---
Date of Consultation May 22, 2022 Assessment & Plan (1) Intractable generalized abdominal pain: (2) Leukocytosis: (3) Hematuria: Plan 1. Cover for UTI and cholangitis w antibiotics. 2. Keep NPO. 3. MRCP to verify no choledocholithiasis. 4. Will watch for blood and urine cultures. 5. Consider acalculous cholecystitis. Would need transfer to [place] for possible cholecystic drain. Supervising Physician Co-Signing Physician Notes I have seen and examined the patient and discussed the management with MINNIE Fernandez. consult for abdominal pain. PE - ttp in ruq drop in hgb, no bun rise, normal lft's, distended gb on ct but no evidence of cholecystitis or cbd dilation on contrast ct or hida diff- acalculous cholcyestitis +/- ulcer obtain mrcp to rule out cbd stone. Continue ppi given her elevated wbc count, ua findings and ct evidence of bladder wall thickening - would continue abx for now. History of Present Illness Reason for Consultation: Abdominal pain Requesting Physician: Dr. Leno MD Attending Physician: Mirza Burr MD History of Present Illness Ms. Jojo Wilburn is a 37 yr old female pt of MINNEI Murcia with a hx of obesity S/P RYGB in September 2021. She has a hx of GERD but has not had recent reflux symptoms. She began with diffuse abd pain on Sunday. It gradually increased in intensity since then and she presented to the ED yesterday afternoon. On arrival CT w a distended gallbladder w/o stones or jon dil. HIDA was normal. Seen by surgery who did not feel she has cholecystitis. LFTs have been normal. She has been febrile, up to 100.1 at home and had a WBC of 25 yesterday, (16 today) and T Max was 39.3 at 3PM today. She has also been mildly tachycardic and continues w significant pain. Most recent EGD for GERD in 2019 w grade A reflux esophagitis. PPI and Carafate were started on arrival. She denies any recent NSAID use. No black or bloody BMs. No vomiting. Allergies Allergy/AdvReac Type Severity Reaction Status Date / Time No Known Allergies Allergy Verified 05/21/22 16:33 Home Medications Medication Instructions Recorded Confirmed Type No Known Home Medications 05/21/22 05/21/22 History Patient History Medical History Diet controlled gestational diabetes mellitus (GDM) in third trimester Encounter for anatomic survey Gross hematuria History of premature delivery, currently Hx LEEP (loop electrosurgical excision procedure), cervix, Migraine headache Obesity Obesity complicating peripregnancy, antepartum Polycystic ovarian syndrome -induced diabetes Sensation of pressure in bladder area Supervision of high risk in second trimester Supervision of high risk in third trimester Urinary symptom or sign Surgical History S/P LEEP (loop electrosurgical excision procedure) S/P wisdom tooth extraction [place] teeth extracted Family History Mother Depression Grandmother (Paternal) Diabetes Grandfather (Maternal) Diabetes Grandmother (Maternal) Diabetes Grandfather (Paternal) Hypertension Other Breast cancer Denies family history of Ovarian cancer Prostate cancer Colorectal cancer Social History Smoking Status: Never smoker Second Hand Exposure: No; Hx Alcohol Use: Yes Alcohol type: wine Hx Substance Use: No Preferred Language: Ugandan Communication Ability: Effective Facility Manager Histology Required: No Beliefs That Will Affect Care: None marital status: Current Living Situation: Family Feels Safe at Home: Yes Assistive Devices: None Review of Systems Review of Systems: ROS: Gen: + fevers, weight loss (post GB), mild weakness in the past few days. Eyes: No eye redness, or pain, no recent vision changes Resp: No SOB, no cough Cardio: + tachycardia, no chest pain GI: No abdominal pain, no nausea/vomiting : + blood in urine, no pain on urination Skin: No jaundice, itching or new rashes Physical Exam Constitutional: well developed, well nourished, + acute distress (very uncomfortable appearing) and + thin Eyes: PERRL, conjunctivae normal, anicteric sclerae ENMT: external ear and nose normal, oropharynx normal Neck: trachea midline, no thyromegaly Respiratory: normal respiratory effort, lungs clear to auscultation Cardiovascular: RRR, no murmur, no edema Gastrointestinal (Abdomen): Inspection/Auscultation: abdomen normal to inspection and + hypoactive bowel sounds; abdomen not distended Percussion/Palpation: + abdomen tender (very tender in the RUQ) and abdomen soft Skin: no rashes, warm and dry Neurologic: PERRL, EOMI, accommodation nl, no face palsy, no dysarthria Psychiatric: A+Ox3, euthymic affect Lymphatic: no cervical or axillary lymphadenopathy Results & Data ([facility]) Vital Signs (Past 12 Hours) Vital Signs Temp Pulse Resp BP Pulse Ox O2 Del Method 05/22/22 15:07 38.3 C H 05/22/22 15:02 39.3 C H 114 H 18 121/78 94 Room Air 05/22/22 08:35 36.5 C 72 18 99/64 L 96 Room Air Laboratory Results WBC 16, Hb 9.4, Hct 29, Plts 301, Na 136, K 3.1, Cl 105, CO2 24, BUN 12, Cr 0.62, glucose 82. Diagnostic Findings CTAP w IV/oral: There is prominence of the gallbladder wall however no wall thickening is seen. Clinical correlation with right upper quadrant tenderness is recommended to exclude acute cholecystitis. If clinical concern remains, right upper quadrant ultrasound can be performed. Liver: Unremarkable. No focal lesions are seen. Gallbladder and biliary tree: The gallbladder is distended. The wall is not definitely thickened. No intra- or extrahepatic biliary ductal dilation. Pancreas: Unremarkable, no focal lesions. US Distended gallbladder. No gallbladder wall thickening or gallstones. HIDA: Unremarkable nuclear hepatobiliary scan. There is no scintigraphic evidence of cholecystitis.
--- NOTE | 2022-05-22 17:57 | Magnetic Resonance Report ---
MR MRCP CLINICAL HISTORY: abd pain, post RYGB, r/o choledocholithiasis TECHNIQUE: Multiplanar multisequence MR images of the abdomen were obtained, as per MRCP protocol. . COMPARISON: Comparison is made to CT abdomen pelvis 05/11/2022 and gallbladder ultrasound 05/11/2022 FINDINGS: Lower chest: No acute abnormality Liver: Unremarkable. No focal lesions are seen. Gallbladder and biliary tree: The gallbladder wall is not thickened. The gallbladder is again noted t o be distended. No intra- or extrahepatic biliary ductal dilation. No filling defects are seen in the common bile duct. Pancreas: Unremarkable, no focal lesions. Spleen: Unremarkable. Adrenals: Unremarkable. Kidneys and ureters: Unremarkable. Bowel: Patient is status post gastric bypass surgery. Lymph nodes Retroperitoneal: Unremarkable. Mesenteric: Unremarkable. Peritoneum: Normal Vessels: Unremarkable. Abdominal wall: Unremarkable. Bones: Unremarkable. IMPRESSION: No filling defects to suggest choledocholithiasis. The gallbladder wall is not thickened. ACT 112: Negative or not required by law. Electronically signed by: Aaron Kramer M.D. 05/22/2022 5:55 PM
[2022-05-22] MEDS: busPIRone 5 MG TAB PO SCH (20:57)
[2022-05-22] MEDS: CALCIUM CARBONATE 1250MG TAB PO SCH (20:58)
[2022-05-23] MEDS: ACETAMINOPHEN 1,000 MG/100 ML VIAL IV PRN (00:26)
[2022-05-23 07:41] LABS: Basophils # (auto) 0.02 K/uL (0-0.2); Basophils % (auto) 0.2 %; Hematocrit (blood only) 26.8 % (34.1-44.9); Hemoglobin 8.7 g/dl (12.0-16.0); Immature Granulocytes # (auto) 0.03 K/uL (0.00-0.02); Immature Granulocytes % (auto) 0.3 %; Lymphocytes # (auto) 1.51 K/uL (1.2-3.4); Lymphocytes % (auto) 15.8 %; Mean Corpuscular Hemoglobin 26.9 pg (25.0-34.0); Mean Corpuscular Hgb Conc 32.5 g/dL (32.0-36.0); Mean Corpuscular Volume 82.7 fL (80.0-100.0); Mean Platelet Volume 9.5 fL (9.4-12.3); Monocytes # (auto) 0.32 K/uL (0.24-0.82); Monocytes % (auto) 3.3 %; Neutrophils # (auto) 7.58 K/uL (1.4-6.5); Neutrophils % (auto) 79.4 %; Platelet Count 267 K/uL (130-400); RDW Coefficient of Variation 13.7 % (11.5-14.5); RDW Standard Deviation 41.4 fL (36.4-46.3); Red Blood Count 3.24 M/uL (3.93-5.22); White Blood Count 9.56 K/ul (4.8-10.8)
[2022-05-23 08:03] LABS: BUN Creatinine Ratio 10.5 (10-20); Calcium 7.9 mg/dl (8.5-10.1); Creatinine Clr Calc Pharmacy 119.1 ml/min; Est GFR (African American) 136.3 ml/min; Est GFR (Non-African American) 117.6 ml/min; Potassium 3.4 mmol/L (3.5-5.1)
[2022-05-23] MEDS ORDERED: PROPOFOL IV EMULSION 10 MG/ML 20 ML VIAL IV ONE (08:34)
[2022-05-23] MEDS ORDERED: LIDOCAINE 2% MPF LOCAL 5 ML VIAL INFIL ONE (08:34)
--- NOTE | 2022-05-23 08:40 | History & Physical Report ---
Date of Service May 23, 2022 Assessment & Plan Admission and Anticipated Discharge Date Admission Date: May 21, 2022 History of Present Illness Chief Complaint: abdominal pain Primary Care Provider: MINNIE Ferrer 37 yo fm with prior rygb with abdominal pain - mid to ruq Allergies Allergy/AdvReac Type Severity Reaction Status Date / Time No Known Allergies Allergy Verified 05/23/22 08:39 Home Medications Medication Instructions Recorded Confirmed Type No Known Home Medications 05/21/22 05/21/22 History Past Med/Surg History Medical History Diet controlled gestational diabetes mellitus (GDM) in third trimester Encounter for anatomic survey Gross hematuria History of premature delivery, currently Hx LEEP (loop electrosurgical excision procedure), cervix, Migraine headache Obesity Obesity complicating peripregnancy, antepartum Polycystic ovarian syndrome -induced diabetes Sensation of pressure in bladder area Supervision of high risk in second trimester Supervision of high risk in third trimester Urinary symptom or sign Surgical History S/P LEEP (loop electrosurgical excision procedure) S/P wisdom tooth extraction [place] teeth extracted Family History Mother Depression Grandmother (Paternal) Diabetes Grandfather (Maternal) Diabetes Grandmother (Maternal) Diabetes Grandfather (Paternal) Hypertension Other Breast cancer Denies family history of Ovarian cancer Prostate cancer Colorectal cancer Social History Smoking Status: Never smoker Second Hand Exposure: No; Hx Alcohol Use: Yes Alcohol type: wine Hx Substance Use: No Preferred Language: Guyanese Communication Ability: Effective Melter Helper Required: No Beliefs That Will Affect Care: None marital status: Current Living Situation: Family Feels Safe at Home: Yes Assistive Devices: None Review of Systems All systems reviewed & are unremarkable except as noted in HPI & below Physical Exam Physical Exam: Thin female in nad Eyes: PERRL, conjunctivae normal, anicteric sclerae Respiratory: normal respirations Gastrointestinal (Abdomen): soft nt nd Results & Data ([facility]) Vital Signs (Past 12 Hours) Vital Signs Temp Pulse Pulse Resp BP BP Pulse Ox 05/23/22 07:35 36.7 C 83 16 118/79 97 05/22/22 20:55 05/23/22 01:05 37.9 C H 102 H 16 112/78 98 05/22/22 22:00 38.1 C H 100 H 18 108/71 94 05/22/22 20:45 38.3 C H 110 H 16 124/85 98 O2 Del Method 05/23/22 07:35 Room Air 05/22/22 20:55 Room Air 05/23/22 01:05 Room Air 05/22/22 22:00 Room Air 05/22/22 20:45 Room Air Code Status & VTE Plan VTE Prophylaxis Plan VTE Prophylaxis will be ordered: Yes Supervising Physician Co-Signing Physician Notes EGD for evaluation of ulcer
--- NOTE | 2022-05-23 08:55 | Anesthesiology Consultation ---
Date of Service May 23, 2022 Assessment & Plan (1) Encounter for pre-operative examination: Chart Review Chart Review: Acceptable Risk for Surgery, Patient NOT seen in Pre Admission Testing and data entry manager initiated Consults Requested none History Surgery Operation Date: 05/23/22 17:10 Proposed Procedures p Esophagogastroduodenoscopy Dr. Loraine Baron MD Height/Weight Height: 5 ft 1 in Weight: 69.3 kg Allergies Allergy/AdvReac Type Severity Reaction Status Date / Time No Known Allergies Allergy Verified 05/23/22 08:39 Medications Home Medications Medication Instructions Recorded Confirmed Last Taken No Known Home Medications 05/21/22 05/21/22 Unknown Active Medications Generic Name Dose Route Start Last Admin Trade Name Freq PRN Reason Stop Dose Admin Buspirone HCl 10 mg 05/22/22 21:00 05/22/22 20:57 Buspirone 5 Mg Tab PO 06/21/22 20:59 10 mg BID DELORES Administration Calcium Carbonate 650 mg 05/22/22 21:00 05/22/22 20:58 Calcium Carbonate 1250mg Tab PO 06/21/22 20:59 650 mg BID DELORES Administration Hydromorphone HCl 0.5 mg 05/22/22 01:51 05/22/22 20:59 Hydromorphone Inj 0.5 Mg/0.5 Ml Syr IV 06/05/22 01:50 0.5 mg Q3H PRN Administration Pain (8,9,10) Lactated Ringer's 1,000 mls @ 100 mls/hr 05/22/22 01:51 05/22/22 23:01 Lr IV 06/21/22 01:50 100 mls/hr .Q10H DELORES Administration Acetaminophen 1,000 mg in 100 mls @ 400 mls/hr 05/22/22 01:51 05/23/22 00:42 Ofirmev IV 05/25/22 01:50 Infused Q8H PRN Infusion Pain (1,2,3,4) Sucralfate 1 gm 05/22/22 13:00 05/22/22 21:01 Sucralfate 1 Gm/10 Ml Udc PO 06/21/22 12:59 Not Given QID DELORES NPO Date Last Intake of Fluids: 05/22/22 Time Last Intake of Fluids: 23:59 Date Last Intake of Solids: 05/22/22 Time Last Intake of Solids: 18:00 Past Medical History Medical History (Updated 05/23/22 @ 08:54 by Dann Gupta MD) Diet controlled gestational diabetes mellitus (GDM) in third trimester Encounter for anatomic survey Encounter for pre-operative examination Gross hematuria History of premature delivery, currently Hx LEEP (loop electrosurgical excision procedure), cervix, Migraine headache Obesity Obesity complicating peripregnancy, antepartum Polycystic ovarian syndrome -induced diabetes Sensation of pressure in bladder area Supervision of high risk in second trimester Supervision of high risk in third trimester Urinary symptom or sign Past Family History Family History Mother Depression Grandmother (Paternal) Diabetes Grandfather (Maternal) Diabetes Grandmother (Maternal) Diabetes Grandfather (Paternal) Hypertension Other Breast cancer Denies family history of Ovarian cancer Prostate cancer Colorectal cancer Past Surgical History Surgical History S/P LEEP (loop electrosurgical excision procedure) S/P wisdom tooth extraction [place] teeth extracted Social History Smoking Status: Never smoker tobacco type: cigarettes Hx Alcohol Use: Yes Alcohol type: wine alcohol intake frequency: a few times a month Hx Substance Use: No substance use type: does not use Physical Exam Vital Signs Last Vital Signs Temp 36.8 C 05/23/22 08:40 Pulse 84 05/23/22 08:40 Resp 14 05/23/22 08:40 BP 123/82 05/23/22 08:40 Pulse Ox 96 05/23/22 08:40 O2 Del Method 05/23/22 08:40 Testing Laboratory Results 05/23/22 06:44 05/23/22 06:44 Urine Color Yellow 05/21/22 16:11 Urine Appearance Cloudy (Clear) A 05/21/22 16:11 Urine pH 5.0 (4.5-7.5) 05/21/22 16:11 Ur Specific [place] 1.022 (1.000-1.030) 05/21/22 16:11 Urine Protein Trace (Negative) H 05/21/22 16:11 Urine Glucose (UA) Negative (Negative) 05/21/22 16:11 Urine Ketones 4+ (Negative) H 05/21/22 16:11 Urine Nitrite Negative (Negative) 05/21/22 16:11 Ur Leukocyte Esterase 2+ (Negative) H 05/21/22 16:11 Urine WBC (Auto) >30 /hpf (0-5) H 05/21/22 16:11 Urine RBC (Auto) 0-4 /hpf (0-4) 05/21/22 16:11 U Hyaline Cast (Auto) 1-5 /lpf (0-5) 05/21/22 16:11 U Epithel Cells (Auto) >30 /lpf (0-5) H 05/21/22 16:11 Urine Bacteria (Auto) 1+ (Negative) H 05/21/22 16:11 05/21/22 17:01 Aerobic Blood Culture - Preliminary Blood No growth in Aerobic bottle after 24 hours. Anaerobic Blood Culture - Preliminary No growth in Anaerobic bottle after 24 hours. 05/21/22 17:01 Aerobic Blood Culture - Preliminary Blood No growth in Aerobic bottle after 24 hours. Anaerobic Blood Culture - Preliminary No growth in Anaerobic bottle after 24 hours. 05/21/22 16:11 Urine Culture - Preliminary Urine,Clean Catch Pin-point growth present, reincubating. Electrocardiogram Date: 05/21/22 Test Reason : Blood Pressure : / mmHG Vent. Rate : 116 BPM Atrial Rate : 116 BPM P-R Int : 128 ms QRS Dur : 078 ms QT Int : 316 ms P-R-T Axes : 028 069 016 degrees QTc Int : 439 ms Sinus tachycardia with Premature atrial complexes Nonspecific T wave abnormality Abnormal ECG No previous ECGs available Confirmed by Jay Dubose ([id number]) on 05/22/2022 6:20:54 AM
[2022-05-23] MEDS ORDERED: SERTRALINE HCL 50 MG TABLET PO SCH (09:00)
[2022-05-23] MEDS ORDERED: PANTOprazole 40 MG TAB PO SCH (09:00)
[2022-05-23] MEDS ORDERED: fentaNYL citrate 100 MCG/2 ML VIAL ONE (09:10)
[2022-05-23] MEDS ORDERED: ONDANSETRON INJ 2 MG/ML 2 ML VIAL ONE (09:19)
--- NOTE | 2022-05-23 09:21 | GI REPORT ---
Patient Name: September Cosmo Procedure Date: 05/23/2022 8:36 AM Date of : 1985 Admit Type: Inpatient Age: 37 Gender: Female Attending MD: Tessa Baron M.d., Procedure: Upper GI endoscopy Providers: Tessa Baron M.d. Referring MD: Mirza Burr Md Indications: Epigastric abdominal pain Medicines: See anesthesia record Complications: No immediate complications. Estimated Blood Loss: Estimated blood loss: none. Procedure: Pre-Anesthesia Assessment: - Patient identification and proposed procedure were verified prior to the procedure by the physician, the nurse and the anesthesiologist. The procedure was verified in the pre-procedure area. - Prior to the procedure, a History and Physical was performed, and patient medications, allergies and sensitivities were reviewed. The patient's tolerance of previous anesthesia was reviewed. - The risks and benefits of the procedure and the sedation options and risks were discussed with the patient. All questions were answered and informed consent was obtained. After obtaining informed consent, the endoscope was passed under direct vision. Throughout the procedure, the patient's blood pressure, pulse, and oxygen saturations were monitored continuously. The Endoscope was introduced through the mouth, and advanced to the jejunum. The upper GI endoscopy was accomplished without difficulty. The patient tolerated the procedure well. Findings: The examined esophagus appeared normal. The Z-line was regular. A single localized erosion was found in the gastric pouch Evidence of a Marcus-en-Y gastrojejunostomy was found. Biopsies were taken with a cold forceps for Helicobacter pylori testing. The pathology specimen was placed into Bottle A. Verification of patient identification for the specimen was done by the physician and nurse using the patient's name and medical record number. The examined small intestine appeared normal. Impression: - Normal esophagus. - Z-line regular. - Marcus-en-Y gastrojejunostomy. - Normal examined small intestine Recommendation: - Await pathology results. Continue PPI and Carafate. Denise Diaz M.d. 05/23/2022 9:21:10 AM This report has been signed electronically. Note Initiated On: 05/23/2022 8:36 AM Number of Addenda: 0 I attest to the content of the Intraoperative Record and orders documented therein, exceptions below {[id number]}
[2022-05-23] MEDS: LACTATED RINGER'S 1,000 ML IV SCH (10:07)
[2022-05-23] MEDS: CALCIUM CARBONATE 1250MG TAB PO SCH (10:21)
[2022-05-23] MEDS: SUCRALFATE 1 GM/10 ML UDC PO SCH ×2 (10:30→12:03)
[2022-05-23] MEDS: busPIRone 5 MG TAB PO SCH (10:30)
--- NOTE | 2022-05-23 11:04 | Communication Note ---
Date of Service: May 23, 2022 EGD completed today - small erosion noted in the gastric pouch, no overt ulceration noted. Biopsies done for h pylori. Would treat with PPI bid for 8 weeks, Carafate 1 gram qid for 6 weeks. Discussed possible axios into the gallbladder - no current indication for that. At the current time, her pain may be related to the erosion- would consider medical treatment as above. Slow advancement of diet. If persistent pain despite above, outpatient further fup could be considered and further discussion about ? IR intervention down the road if needed (external cholecystostomy tube)
--- NOTE | 2022-05-23 13:32 | Discharge Summary ---
Date of Service May 23, 2022 Admission HPI Per Admitting Provider seen at 1230 h ( hospital day 2) This is from attending NOT admitting doctor : c/o 02/11 upper abd pain earlier . h/O GASTRIC BYPASS August 2021 No abd pain until 3 days ago when she had twinges of abd pain and next day felt like someone was "hugging me really tight like squeezing"/ Mild nausea , no vomiting. Ate last meal 2 days ago. Last BM yesterday 1 pm. No constipation / diarrhea No bloody stool. No prior Gi diagnosis such as PUD. No dysuria or change on urinary frequency Recently on 02/20 started back on sertraline after some years - h/o depression, and recent panic attacks. Says her mood is better now. Works in [employer] . Got this year and has two kids : 5 and 8 year old who are being cared for by her ex . sOCIAL DRINKER-one or two drinks, NO illicit DRUG USE OR SMOKING Principal Diagnosis Acute gastritis, normocytic anemia Discharge Exam at 1315 h 05/23/2022, well looking, well groomed moist tongue- anicteric sclerae, make up on face and eyes no thyromegaly Chest : CTA CVS : s2 s2 RRR Abd : soft, non distended, tender epigastrium w guarding Ext : no c/c/edema Discharge Data Allergies Allergy/AdvReac Type Severity Reaction Status Date / Time No Known Allergies Allergy Verified 05/23/22 08:39 Consultations 05/21/22 22:34 ED Decision to Admit Stat 05/21/22 22:36 Consult General Surgery Stat 05/22/22 13:56 Consult Gastroenterology Routine Procedures Performed Operation Date: 05/23/22 17:10 Actual Procedures p EGD Biopsy Cytology - Tessa Baron MD Ordered Studies 05/21/22 16:56 CT Abd and Pelvis [CT abd pelvis oral and IV con] Stat 05/21/22 17:01 CT chest diagnostic w con Stat 05/21/22 20:05 US gallbladder Urgent 05/22/22 15:52 MR MRCP Routine Hospital Course (1) Gastritis: likely stress induced- On 05/23, a single erosion seen on EGD, no ulcer H plylori sent feeling well- eating regular diet since yesterday except an overnight fast for EGD today PPI started po. Sucralfate qid Cholecystitis ruled out- normal HIDA MRI abd did not reveal choledocholithiasis Initial dx was cholecystitis with her prominent leukocytosis. Zosyn stopped hospital day 2. Did well w a regualr diet 05/22 lunch onwards. Pain is RUQ now and with movement , unrelated w meals. Has seen GI in past and dx of GERD made. D/W GI - DISCHARGE ON PROTONIX 40 mg bid for 4 weeks. Patient to call her GI nurse practitioner for appointment to follow up. (2) Hypokalemia: replace d iv and on day of discharge 3.4- given 40 meq po. High K foods advised at home- shd recover w po intake (3) Depression with anxiety: sertraline 50 mg daily and Buspar resumed 10 mg bid ( not taking at home)- but stopped at discharge- she does not wish to take. She says she has good coping skills, denied depressed mood at present . She said when these meds were started in Feb 2022, took them as was ending a difficult romantic relationship. She never followed up with PCP. I spent some minutes explaining to her the concept of no health without mental health. She has a long standing h/o depression treated intermittently. Urged to keep regular PCP appointments for health maintenance. Denies using any more than two alcohol drinks on each occasion she does socially. It has been over 3 months since she saw PCP- did not RTC Oct after start of ser traline Feb 2022 (4) Leukocytosis: Zosyn stopped. No infection clinically Did spike a temp to 39 C hospital day 2 Asymptomatic pyuria. A week or so ago, she completed 1 week of nitrofurantoin for UTI No dysura/ pressure / change in urinary frequency. Mixed aileen in urine culture. Blood cx NGTD in 24 h (5) History of gastric bypass: resume Oscal D. Has not been taking her post gastric bypass prescribed multivitamins and calcium- urged to Gets q 3 months b12 shots (6) Normocytic anemia: denies heavy periods. No h/o pUD/ bloody or black stools Does not see PCP regularly. Urged to follow up in 2 weeks to work the anemia up. Plan start regular diet- patient declined a soft diet as has restrictions such as no mashed potatoes post gastric bypass Total Time Total Time Spent Total Time Spent (In Minutes): 40 Discharge Plan Discharge Items Patient Disposition: Home - Self-Care Reason For Visit: severe RUQ abd pain Discharge Diagnosis: acute gastritis, normocytic anemia, needs work up as outpatient Activity: Resume your previous activity Non-emergency contact: Primary Care Provider Call non-emergency contact if: your symptoms worsen Follow-up/Referrals: Veronique Jane, MINNIE [Primary Care Provider] - (needs follow up within 2 weeks) Diet: Regular Diet Comment: please eat high potassium foods- banana, pineapple, avocado, nuts, red silva Addtl Attending Provider Instructions: please see your PCP regularly Get GI follow up as planned in the next 2-3 weeks AVOID alcohol and spicy food the next 3-4 weeks. Pending Studies at Discharge: No Medications and DC Order Prescriptions: New pantoprazole [Protonix] 40 mg tablet,delayed release (DR/EC) 40 mg PO BID 28 Days Qty: 56 0RF Discharge Orders: Discharge Order (Routine); Ordered 05/23/22 Ordered By: Mirza Burr Admission Data Admit Date/Time: 05/21/22 22:49 Attending Provider: Mirza Burr Admit Provider: Willie John Primary Care Provider: Veronique Jane Other Providers: Thomas Reece ; Mabel Thompson ; Armando Schreiber Other Interventions: Discharge Summary Assessment (RN) Last Done: 05/23/22 09:42 Coding Level of Care Code D/C DAY MANAGEMENT >30 MINS Diagnoses Gastritis K29.70 Hypokalemia E87.6 Depression with anxiety F41.8 Leukocytosis D72.829 History of gastric bypass Z98.84 Normocytic anemia D64.9
[2022-05-23] MEDS ORDERED: POTASSIUM CHLORIDE CRTAB 20 MEQ TABCR PO STA (13:33)
--- NOTE | 2022-05-23 14:23 | Anesthesiology Progress Note ---
Date of Service May 23, 2022 Anesthesia Post Procedure Vital Signs Vital Signs: Temp Pulse Pulse Resp BP BP Pulse Ox 05/23/22 09:53 75 18 102/72 96 05/23/22 09:38 79 18 108/71 94 05/23/22 09:23 86 86 18 110/70 95 05/23/22 08:40 36.8 C 84 84 14 123/82 96 05/23/22 07:35 36.7 C 83 16 118/79 97 05/22/22 20:55 05/23/22 01:05 37.9 C H 102 H 16 112/78 98 05/22/22 22:00 38.1 C H 100 H 18 108/71 94 05/22/22 20:45 38.3 C H 110 H 16 124/85 98 05/22/22 17:33 37.5 C 05/22/22 15:07 38.3 C H 05/22/22 15:02 39.3 C H 114 H 18 121/78 94 O2 Del Method 05/23/22 09:53 Room Air 05/23/22 09:38 Room Air 05/23/22 09:23 Room Air 05/23/22 08:40 Room Air 05/23/22 07:35 Room Air 05/22/22 20:55 Room Air 05/23/22 01:05 Room Air 05/22/22 22:00 Room Air 05/22/22 20:45 Room Air 05/22/22 17:33 05/22/22 15:07 05/22/22 15:02 Room Air Pain Intensity Bilateral Upper Abdomen: Pain Intensity: 8 Transfer of Care Handoff Completed per policy Notes Mental Status: alert / awake / arousable and participated in evaluation Patient Amnestic to Procedure: Yes Nausea / Vomiting: adequately controlled Pain: adequately controlled Airway Patency, RR, SpO2: stable & adequate BP & HR: stable & adequate Hydration State: stable & adequate Anesthetic Complications: no major complications apparent and Pt Satisfied with anesthetic care
== END 2022-05-23 14:52 | disposition home or self-care (01) | DRG 384 ==
LOC: ED 15:37 → SUATTDRO 22:49 → 3E 22:49